=== PATIENT | male | born 1945 | race Caucasian/White ===

== ENCOUNTER 2021-06-03 08:05 | Outpatient (REF) | payer BC, SELFPAY ==
[2021-06-03 11:04] LABS: Hematocrit 45.5 % (42-52); Hemoglobin 15.7 g/dl (14.0-18.0); Mean Corpuscular HGB Conc 34.5 g/dl (31.0-36.0); Mean Corpuscular Volume 92.9 fL (80-98); Mean Platelet Volume 9.6 fL (9.4-12.4); Platelet Count 193 X10*3/uL (160-400); White Blood Count 7.7 X10*3/uL (4.8-10.8)
[2021-06-03 11:47] LABS: Alanine Aminotransferase 29 U/L (0-40); Albumin Level 4.6 g/dL (3.5-5.0); Alkaline Phosphatase 86 U/L (39-117); Anion Gap 16 (12-20); Aspartate Amino Transferase 25 U/L (5-37); Bilirubin Total 0.7 mg/dL (0.0-1.0); Blood Urea Nitrogen 33 mg/dL (9-16); Calcium 9.7 mg/dL (8.4-10.2); Carbon Dioxide 25 mmol/L (22-29); Chloride 105 mmol/L (96-108); Cholesterol 151 mg/dL; Estimated Glomerular Filt Rate 47; Glucose Fasting 103 mg/dL (60-99); HDL Cholesterol 51 mg/dL; LDL Cholesterol Calculated 63 mg/dl; Sodium 142 mmol/L (135-145); Total Protein 7.5 g/dL (6.5-8.0); Triglycerides 189 mg/dL
[2021-06-03 12:10] LABS: Prostate Specific Antigen 0.92 ng/mL (<0.05-4.0)
== END 2021-06-03 08:06 | disposition home or self-care (01) ==
LOC: HO.MANLDS 08:05
PROVIDERS: PCP Internal Medicine; Visit Provider Internal Medicine
DX: Z12.5 Encounter for screening for malignant neoplasm of prostate (principal); I10 Essential (primary) hypertension
CPT/HCPCS: 36415; 80053; 80061; 84153; 85027

== ENCOUNTER 2023-02-24 08:12 | Outpatient (REF) | payer BC, SELFPAY ==
[2023-02-24 11:23] LABS: MANUAL DIFF FLAG NO
[2023-02-24 11:52] LABS: Basophils Absolute Auto 0.1 X10*3/uL (0.0-0.2); Basophils Percent Auto 0.6 % (0-2); Eosinophils Absolute Auto 0.2 X10*3/uL (0.0-0.4); Eosinophils Percent Auto 2.8 % (0-4); Hematocrit 43.7 % (42.0-52.0); Hemoglobin 14.8 g/dl (14.0-18.0); Imm Gran Abs Auto 0.04 X10*3/uL (0.00-0.03); Imm Gran Pct Auto 0.5 % (0.0-0.4); Lymphocytes Absolute Auto 1.8 X10*3/uL (1.2-4.9); Lymphocytes Percent Auto 21.3 % (20-40); Mean Corpuscular HGB Conc 33.9 g/dl (31.0-36.0); Mean Corpuscular Volume 94.4 fL (80.0-98.0); Mean Platelet Volume 9.5 fL (9.4-12.4); Monocytes Absolute Auto 0.7 X10*3/uL (0.1-1.2); Monocytes Percent Auto 8.3 % (2-11); Neutrophils Absolute Auto 5.6 x10*3/uL (2.0-8.3); Neutrophils Percent Auto 66.5 % (45-73); Platelet Count 224 X10*3/uL (160-400); Red Blood Count 4.63 X10*6/uL (4.60-5.80); Red Cell Distribution Width 12.8 % (11.0-16.0); White Blood Count 8.4 X10*3/uL (4.8-10.8)
[2023-02-24 12:10] LABS: Alanine Aminotransferase 21 U/L (0-40); Albumin Level 4.3 g/dL (3.5-5.0); Alkaline Phosphatase 80 U/L (39-117); Anion Gap 16 (12-20); Aspartate Amino Transferase 19 U/L (5-37); Bilirubin Total 0.6 mg/dL (0.0-1.0); Blood Urea Nitrogen 34 mg/dL (9-16); Calcium 9.4 mg/dL (8.4-10.2); Carbon Dioxide 25 mmol/L (22-29); Chloride 107 mmol/L (96-108); Cholesterol 147 mg/dL; Estimated Glomerular Filt Rate 50; Glucose Fasting 101 mg/dL (60-99); HDL Cholesterol 49 mg/dL; LDL Cholesterol Calculated 69 mg/dl; Potassium 4.5 mmol/L (3.3-5.1); Sodium 143 mmol/L (135-145); Triglycerides 146 mg/dL; Uric Acid 9.2 mg/dL (3.4-7.0)
[2023-02-26 12:18] LABS: NT-proBNP 97 pg/mL
== END 2023-02-24 08:13 | disposition home or self-care (01) ==
LOC: HO.MANLDS 08:12
PROVIDERS: Internal Medicine; Visit Provider Physician Assistant
DX: R60.0 Localized edema (principal); E78.2 Mixed hyperlipidemia
CPT/HCPCS: 36415; 80053; 80061; 83880; 84550; 85025

== ENCOUNTER 2023-05-05 | Outpatient (REF) | payer BC, SELFPAY ==
[2023-05-05 18:47] LABS: Uric Acid 7.7 mg/dL (3.4-7.0)
== END 2023-05-05 00:01 ==
LOC: HO.MANLDS
PROVIDERS: Visit Provider Physician Assistant
DX: M10.041 Idiopathic gout, right hand (principal)
CPT/HCPCS: 36415; 84550

== ENCOUNTER 2024-03-21 08:43 | Outpatient (REF) | payer BC, SELFPAY ==
[2024-03-21 13:11] LABS: MANUAL DIFF FLAG NO
[2024-03-21 13:23] LABS: Basophils Absolute Auto 0.1 X10*3/uL (0.0-0.2); Basophils Percent Auto 0.8 % (0-2); Eosinophils Absolute Auto 0.3 X10*3/uL (0.0-0.4); Eosinophils Percent Auto 4.7 % (0-4); Hematocrit 44.7 % (42.0-52.0); Hemoglobin 15.2 g/dl (14.0-18.0); Imm Gran Abs Auto 0.03 X10*3/uL (0.00-0.03); Imm Gran Pct Auto 0.4 % (0.0-0.4); Lymphocytes Absolute Auto 1.1 X10*3/uL (1.2-4.9); Lymphocytes Percent Auto 14.8 % (20-40); Mean Corpuscular Hemoglobin 32.4 pg (27.0-33.0); Mean Corpuscular Volume 95.3 fL (80.0-98.0); Mean Platelet Volume 9.6 fL (9.4-12.4); Monocytes Absolute Auto 0.5 X10*3/uL (0.1-1.2); Monocytes Percent Auto 7.4 % (2-11); Neutrophils Absolute Auto 5.3 x10*3/uL (2.0-8.3); Neutrophils Percent Auto 71.9 % (45-73); Platelet Count 206 X10*3/uL (160-400); Red Blood Count 4.69 X10*6/uL (4.60-5.80); Red Cell Distribution Width 13.9 % (11.0-16.0); White Blood Count 7.3 X10*3/uL (4.8-10.8)
[2024-03-21 14:06] LABS: Alanine Aminotransferase 17 U/L (0-40); Albumin Level 4.4 g/dL (3.5-5.0); Alkaline Phosphatase 86 U/L (39-117); Anion Gap 11 (12-20); Aspartate Amino Transferase 22 U/L (5-37); Bilirubin Total 0.5 mg/dL (0.0-1.0); Blood Urea Nitrogen 28 mg/dL (9-16); Calcium 10.4 mg/dL (8.4-10.2); Carbon Dioxide 29 mmol/L (22-29); Chloride 103 mmol/L (96-108); Cholesterol 170 mg/dL (<200); Estimated Glomerular Filt Rate 47; Glucose Random 100 mg/dL (60-115); HDL Cholesterol 49 mg/dL (>40); LDL Cholesterol Calculated 85 mg/dL (<100); Potassium 5.1 mmol/L (3.3-5.1); Sodium 138 mmol/L (135-145); Total Protein 7.8 g/dL (6.5-8.0); Triglycerides 183 mg/dL (<150); Uric Acid 5.8 mg/dL (3.4-7.0)
[2024-03-21 14:17] LABS: Prostate Specific Antigen 0.97 ng/mL (<0.05-4.0)
== END 2024-03-21 08:44 | disposition home or self-care (01) ==
LOC: HO.MANLDS 08:43
PROVIDERS: Visit Provider Internal Medicine
DX: Z12.5 Encounter for screening for malignant neoplasm of prostate (principal); I10 Essential (primary) hypertension; E78.2 Mixed hyperlipidemia; E79.0 Hyperuricemia without signs of inflammatory arthritis and tophaceous disease
CPT/HCPCS: 36415; 80053; 80061; 84153; 84550; 85025

== ENCOUNTER 2025-08-22 09:16 | Outpatient (REF) | payer BC, SELFPAY ==
--- OUTSIDE RECORDS SUMMARY | 2025-08-22 10:03 | XMS_ITS | Clinical Summary ---
Author Organization [facility] Address [address] [place] [address] Phone Care Team Providers Care Door Repairer Bus Name Role Phone Kojo Armenta Primary Care Provider [phone] KathiKojo DO Unavailable Allergies Active Allergy Reactions Criticality Noted Date Comments Anthony Inhibitors 06/20/2022 Other reaction(s): hyperlakemia Amlodipine 06/20/2022 Other reaction(s): Edema Arb-Angiotensin Receptor Antagonist 06/20/2022 Penicillin Medium 06/20/2022 Other reaction(s): rash Penicillins Rash Low 12/09/2011 Other reaction(s): RASH Sulfa (Sulfonamide Antibiotics) Rash Low 06/20/2022 Terazosin 06/20/2022 Medications sildenafil (VIAGRA) 100 mg tablet 1 tablet as needed 0 Active atorvastatin (LIPITOR) 40 MG tablet 1 tablet 0 Active metoprolol tartrate (LOPRESSOR) 100 MG tablet TAKE ONE TABLET BY MOUTH TWICE DAILY Active valACYclovir (VALTREX) 500 MG tablet Take 250 mg by mouth 3 (three) times a week. Active aspirin 81 MG EC tablet Take 81 mg by mouth daily. Active allopurinol (ZYLOPRIM) 100 MG tablet Take 2 tablets by mouth every morning. 4 Active amLODIPine (NORVASC) 10 MG tablet Take 10 mg by mouth daily. Active chlorthalidone (HYGROTON) 25 MG tablet Take 25 mg by mouth daily. Active therapeutic multivitamin tablet Take 1 tablet by mouth daily. Active Social History Tobacco Use Types Packs/Day Years Used Date Smoking Tobacco: Former Cigarettes Q uit: 1973 Smokeless Tobacco: Never Tobacco Cessation:Counseling Given: Not Answered Alcohol Use Standard Drinks/Week Comments Yes 4 (1 standard drink = 0.6 oz pur e alcohol) Education Answer Date Recorded Are you interested in more education? Not on maggie e 03/20/2023 Are you concerned about learning? Not on file 03/20/2023 No 03/20/2023 No 03/20/2023 Digital Access Answer Date Recorded No 04/15/2023 No 04/15/2023 Reliable internet access at home? Not on file 04/15/2023 Device with a working camera? Not on file Intimate Partner Violence Answer Date R ecorded Are you denied basic needs s uch as food, clothing, or medical care? No 04/01/2024 In the past 12 months have y ou been in a relationship with a person who hurts, threatens, or tries to control you? No 04/01/2024 Are you denied basic needs s uch as food, clothing, or medical care? No 04/01/2024 In the past 12 months have y ou been in a relationship with a person who hurts, threatens, or tries to control you? No 04/01/2024 Sex and Gender Information Value Date Recorded Sex Assigned at Not on file Legal Sex Male 10:09 PM EDT Gender Identity Not on file Sexual Orientation Not on file Last Filed Vital Signs Vital Sign Reading Time Taken Comments Blood Pressure 108/78 04/01/2024 11:30 AM EDT Pulse 78 04/01/2024 11:30 AM EDT Temperature 36 C (96.8 F) 04/01/2024 11:06 AM EDT Respiratory Rate 20 04/01/2024 11:30 AM EDT Oxygen Saturation 95% 04/01/2024 11:30 AM EDT Inhaled Oxygen Concentration - - Weight 86.2 kg (190 lb) 03/31/2024 9:22 AM EDT Height 175.3 cm (5' 9 ) 03/31/2024 9:22 AM EDT Body Mass Index 28.06 03/31/2024 9:22 AM EDT Plan of Treatment Health Maintenance Due Date Last Done Comments DEPRESSION SCREENING 1957 SMOKING Hx and SMOKELESS TOBACCO SCREENING 1958 RSV VACCINE (1 - 1-dose 75+ series) 2020 PNEUMOCOCCAL VACCINES (50+ years) (2 of 2 - PPSV23) 09/27/2022 09/27/2021 INFLUENZA VACCINE (#1) 2025 10/06/2022, 2020 COVID-19 VACCINE (5 - season) 2025 10/06/2022, 08/20/2021, 01/15/2021, Additional history exists CREATININE LEVEL 08/22/2025 08/22/2024 POTASSIUM LEVEL 08/22/2025 08/22/2024 LIPID PANEL 08/22/2029 08/22/2024, 02/22, 02/24/2023, Additional history exists Adult Td,Tdap Booster 09/27/2031 09/27/2021 ZOSTER VACCINES Completed 09/24/2021, 11/2020, 06/25/2020, Additional history exists HEPATITIS A VACCINES Aged Out No long er eligible based on patient's age to complete this topic HIB VACCINES Aged Out No longer eligi ble based on patient's age to complete this topic MENINGOCOCCAL VACCINES (ACWY) Aged Out No longer eligible based on patient's age to complete this topic MENINGOCOCCAL VACCINES (B) Aged Out N o longer eligible based on patient's age to complete this topic Medical Devices Implanted Type Area Yardage Tufting Machine Operator Device Identifier Shelf Expiration Date Model / Serial / Lot Left Leg Cardiac Stents Procedures Procedure Name Priority Date/Time Associated Diagnosis Comments LIPID PANEL Routine 08/22/2024 8:16 AM EDT Encounter for general adult medical examination with abnormal findings COMPREHENSIVE METABOLIC PANEL Routine 08/22/2024 8:16 AM EDT Encounter for general adult medical examination with abnormal findings from Last 3 Months or Most Recently Relevant to Health Maintenance Results * (ABNORMAL) Comprehensive metabolic panel (08/22/2024 8:16 AM EDT) SODIUM 142 133 - 146 mmol/L [facility] POTASSIUM 5.0 3.3 - 5.1 mmol/L [facility] CHLORIDE 104 96 - 108 mmol/L [facility] CO2 27 21 - 35 mmol/L [facility] BUN 33(H) 6 - 19 mg/dL [facility] CREATININE 1.50 0.5 - 1.5 mg/dL [facility] GLUCOSE 94 70 - 99 mg/dL [facility] ALBUMIN 4.2 3.9 - 4.8 g/dL [facility] TOTAL PROTEIN 7.2 6.5 - 8.0 g/dL [facility] CALCIUM 9.6 8.4 - 10.3 mg/dL [facility] ALKALINE PHOSPHATASE 90 39 - 117 U/L [facility] TOTAL BILIRUBIN 0.4 0.0 - 1.2 mg/dL [facility] AST 23 0 - 37 U/L [facility] ALT 16 0 - 40 U/L [facility] GLOBULIN 3.0 1 - 4.8 g/dL [facility] EGFR 47(L) >59 mL/min/1.7 3m2 [facility] Comment:Estimated glomerular filtration rate calculated using the CKD-EPI refit equation. ANION GAP 16 10 - 20 mmol/L [facility] Blood 08/22/2024 8:16 AM EDT 08/22/2024 8:18 AM EDT us Kojo A Bigda DO LAB BLOOD ORDERABLES Final Resul t [facility] [address] [place] [address] * (ABNORMAL) Lipid panel (08/22/2024 8:16 AM EDT) HDL 47 mg/dL [facility] Comment: Interpretation <40 mg/dL: Low HDL cholesterol (major risk factor for CHD) Greater than or equal to 60 mg/dL: High HDL cholesterol ( negative risk factor for CHD) HDL - cholesterol is affected by a number of factors, e.g. smoking, excerise, hormones, sex and age. CHOLESTEROL 150 0 - 240 mg/dL [facility] TRIGLYCERIDES 245(H) 30 - 160 mg/dL [facility] LDL 54 50 - 129 mg/dL [facility] Comment: LDL levels in terms of risk for coronary heart disease: <100 mg/dL: Optimal 100-129 mg/dL: Near or above optimal 130-159 mg/dL: Borderline high 160-189 mg/dL: High >190 mg/dL: Very High CARDIAC RISK RATIO 3.2(L) 3.4 - 5.0 C [facility] Blood 08/22/2024 8:16 AM EDT 08/22/2024 8:19 AM EDT us Kojo Armenta DO LAB BLOOD ORDERABLES Final Resul t [facility] [address] [place] [address] from Last 3 Months or Most Recently Relevant to Health Maintenance Insurance Care Teams Door Repairer Bus Relationship Specialty Start Date End Date Kojo Armenta DO [email or web address] PCP - General 09/07/17 Kojo Armenta DO [address] [place] [address] [email or web address] Insurance Assigned Provider 02/27/24 Additional Source Comments The information contained in this document represents components of the legal health record. It is not the complete legal health record.[facility]
--- OUTSIDE RECORDS SUMMARY | 2025-08-22 10:03 | XMS_ITS | Encounter Summary ---
Author Organization [facility] Address [address] [place] [address] Phone Care Team Providers Care Dumbwaiter Operator Name Role Phone Kojo Aremnta Primary Care Provider [phone] HeraclioKojo lowery Unavailable Encounter Details Date Type Department Care Team (Latest Contact Info) Description 02/23/2023 Transcribe Orders Virtual Department [address] [place] [address] Zainab Vasquez PA [address] [facility] [place] [address] [place] [address] Pain in joint involving ankle and foot, unspecified laterality (Primary Dx) Social History Tobacco Use Types Packs/Day Years Used Date Smoking Tobacco: Never Assessed Sex and Gender Information Value Date Recorded Sex Assigned at Not on file Legal Sex Male 10:09 PM EDT Gender Identity Not on file Sexual Orientation Not on file documented as of this encounter Plan of Treatment Not on file documented as of this encounter Results * XR ANKLE 3 OR MORE VIEWS (RIGHT) (02/24/2023 9:07 AM EDT) Anatomical Region Laterality Modality Ankle Right Computed Radiogr aphy 02/24/2023 6:05 PM EDT Impressions 02/24/2023 6:07 PM EDT Postoperative findings in 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 No acute osseous abnormality in the left ankle, with mild degenerative findings. Left ankle is also similar compared to 2019. Narrative 02/24/2023 6:07 PM EDT XR ANKLE 3 OR MORE VIEWS (LEFT), XR ANKLE 3 OR MORE VIEWS (RIGHT) COMPARISON: XR ANKLE 3 OR MORE VIEWS (LEFT) FINDINGS: Left ankle: No fracture or dislocation. Ankle mortise is congruent. Talar dome appears intact. Mild tibiotalar and midfoot degenerative change. Plantar calcaneal spur. Findings are similar compared to 2019. Right ankle: Multifocal osseous irregularity is similar to prior, consistent was correlated of prior trauma. No acute fracture or dislocation. Moderate tibiotalar joint degenerative change. Mild midfoot degenerative change. Plantar calcaneal spur. Procedure Note Hernán Solorio MD - 02/24/2023 XR ANKLE 3 OR MORE VIEWS (LEFT), XR ANKLE 3 OR MORE VIEWS (RIGHT) COMPARISON: XR ANKLE 3 OR MORE VIEWS (LEFT) FINDINGS: Left ankle: No fracture or dislocation. Ankle mortise is congruent. Talardome appears intact. Mild tibiotalar and midfoot degenerative change.Plantar calcaneal spur. Findings are similar compared to 2019. Right ankle: Multifocal osseous irregularity is similar to prior,consistent was correlated of prior trauma. No acute fracture ordislocation. Moderate tibiotalar joint degenerative change. Mild midfootdegenerative change. Plantar calcaneal spur. IMPRESSION: Postoperative findings in the right ankle with moderate secondarytibiotalar degeneration, similar compared to 2019. No acute osseous abnormality in the left ankle, with mild degenerativefindings. Left ankle is also similar compared to 2019. 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 No acute osseous abnormality in the left ankle, with mild degenerative findings. Left ankle is also similar compared to 2019. Narrative 02/24/2023 6:07 PM EDT XR ANKLE 3 OR MORE VIEWS (LEFT), XR ANKLE 3 OR MORE VIEWS (RIGHT) COMPARISON: XR ANKLE 3 OR MORE VIEWS (LEFT) 2018- FINDINGS: Left ankle: No fracture or dislocation. Ankle mortise is congruent. Talar dome appears intact. Mild tibiotalar and midfoot degenerative change. Plantar calcaneal spur. Findings are similar compared to 2019. Right ankle: Multifocal osseous irregularity is similar to prior, consistent was correlated of prior trauma. No acute fracture or dislocation. Moderate tibiotalar joint degenerative change. Mild midfoot degenerative change. Plantar calcaneal spur. Procedure Note Hernán Solorio MD - 02/24/2023 XR ANKLE 3 OR MORE VIEWS (LEFT), XR ANKLE 3 OR MORE VIEWS (RIGHT) COMPARISON: XR ANKLE 3 OR MORE VIEWS (LEFT) FINDINGS: Left ankle: No fracture or dislocation. Ankle mortise is congruent. Talardome appears intact. Mild tibiotalar and midfoot degenerative change.Plantar calcaneal spur. Findings are similar compared to 2019. Right ankle: Multifocal osseous irregularity is similar to prior,consistent was correlated of prior trauma. No acute fracture ordislocation. Moderate tibiotalar joint degenerative change. Mild midfootdegenerative change. Plantar calcaneal spur. IMPRESSION: Postoperative findings in the right ankle with moderate secondarytibiotalar degeneration, similar compared to 2019. No acute osseous abnormality in the left ankle, with mild degenerativefindings. Left ankle is also similar compared to 2019. Zainab Vasquez PA IMG XR LOWER EXTREMITY Ursula l Result documented in this encounter Visit Diagnoses Diagnosis Pain in joint involving ankle and foot, unspecified laterality- Primary Pain in joint involving ankle and foot, unspecified laterality Pain in joint involving ankle and foot, unspecified laterality documented in this encounter Care Teams Dumbwaiter Operator Relationship Specialty Start Date End Date Kojo Armenta DO [email or web address] PCP - General 09/07/17 Kojo Armenta DO [address] [place] [id number] Insurance Assigned Provider 02/27/24 documented as of this encounter Additional Source Comments The information contained in this document represents components of the legal health record. It is not the complete legal health record.[facility]
--- OUTSIDE RECORDS SUMMARY | 2025-08-22 10:03 | XMS_ITS | Encounter Summary ---
Author Organization [facility] Address [address] [place] [phone] Phone Care Team Providers Care Dedicated Local Truck Driver Name Role Phone Kojo Armenta DO Primary Care Provider [phone] Kojo Armenta DO Unavailable Encounter Details Date Type Department Care Team (Late st Contact Info) Description 12/09/2023 Procedure Pass [facility] Admitting Dept Virtual Department [address] [place] [address] Social History Tobacco Use Types Packs/Day Years Used Date Smoking Tobacco: Never Assessed Education Answer Date Recorded Are you interested in more education? Not on maggie e 03/20/2023 Are you concerned about learning? Not on file 03/20/2023 No 03/20/2023 No 03/20/2023 Digital Access Answer Date Recorded No 04/15/2023 No 04/15/2023 Reliable internet access at home? Not on file 04/15/2023 Device with a working camera? Not on file Sex and Gender Information Value Date Recorded Sex Assigned at Not on file Legal Sex Male 10:09 PM EDT Gender Identity Not on file Sexual Orientation Not on file documented as of this encounter Plan of Treatment Not on file documented as of this encounter Visit Diagnoses Not on filedocumented in this encounter Care Teams Dedicated Local Truck Driver Relationship Specialty Start Date End Date Kojo Armenta DO [email or web address] PCP - General 09/07/17 Kojo Armenta DO [address] [place] [address] [email or web address] Insurance Assigned Provider 02/27/24 documented as of this encounter Additional Source Comments The information contained in this document represents components of the legal health record. It is not the complete legal health record.[facility]
--- OUTSIDE RECORDS SUMMARY | 2025-08-22 10:03 | XMS_ITS | Encounter Summary ---
Author Organization [facility] Address [address] [place] [address] Phone Care Team Providers Care Invasive Manager Name Role Phone HeracliosebastiánKojo DO Primary Care Provider [phone] Kojo Armenta DO Unavailable Encounter Details Date Type Department Care Team (Late st Contact Info) Description 03/21/2022 Procedure Pass [facility], [address] [address] Social History Tobacco Use Types Packs/Day Years [...] on filedocumented in this encounter Care Teams Invasive Manager Relationship Specialty Start Date End Date Kojo Armenta DO PCP - General 09/07/17 Kojo Armenta DO [address] [place] [address] [place] [address] Insurance Assigned Provider 02/27/24 documented as of this encounter Additional Source Comments The information contained in this document represents components of the legal health record. It is not the complete legal health record.[facility]
--- OUTSIDE RECORDS SUMMARY | 2025-08-22 10:03 | XMS_ITS | Encounter Summary ---
Author Organization [facility] Address [address] [place] [id number] Phone Care Team Providers Care Welfare Investigator Name Role Phone Heracliosebastián Kojo Germain DO Primary Care Provider [phone] Kojo Armenta DO Unavailable Encounter Details Date Type Department Care Team (Late st Contact Info) Description 03/21/2022 Transcribe Orders Virtual Department [address] [place] [address] Kojo Armenta DO [address] [facility] [place] [address] [place] [address] [email or web address] Acute medial meniscus tear of right knee, initial encounter (Primary Dx) Social History Tobacco Use Types Packs/Day Years Used Date Smoking Tobacco: Never Assessed Sex and Gender Information Value Date Recorded Sex Assigned at Not on file Legal Sex Male 10:09 PM EDT Gender Identity Not on file Sexual Orientation Not on file documented as of this encounter Plan of Treatment Not on file documented as of this encounter Results * XR KNEE 4 OR MORE VIEWS (RIGHT) (03/24/2022 1:49 PM EDT) Anatomical Region Laterality Modality Knee Right Computed Radiogr aphy 03/24/2022 4:54 PM EDT Impressions 03/24/2022 4:58 PM EDT Moderate medial compartment degenerative changes. Narrative 03/24/2022 4:58 PM EDT XR KNEE 4 OR MORE VIEWS (RIGHT) COMPARISON: None FINDINGS: No fracture. Moderate medial compartment degenerative changes and joint space loss. Mild lateral and patellofemoral compartment degenerative changes. No joint effusion. Vascular calcifications. Procedure Note Dong Knight MD - 03/24/2022 XR KNEE 4 OR MORE VIEWS (RIGHT) COMPARISON: None FINDINGS: No fracture. Moderate medial compartment degenerative changes and jointspace loss. Mild lateral and patellofemoral compartment degenerativechanges. No joint effusion. Vascular calcifications. IMPRESSION: Moderate medial compartment degenerative changes. Kojo Armenta DO IMG XR LOWER EXTREMITY Final Res ult documented in this encounter Visit Diagnoses Diagnosis Acute medial meniscus tear of right knee, initial encounter- Primary Acute medial meniscus tear of right knee, initial encounter documented in this encounter Care Teams Welfare Investigator Relationship Specialty Start Date End Date Kojo Armenta DO PCP - General 09/07/17 Kojo Armenta DO [address] [place] [address] Insurance Assigned Provider 02/27/24 documented as of this encounter Additional Source Comments The information contained in this document represents components of the legal health record. It is not the complete legal health record.[facility]
--- OUTSIDE RECORDS SUMMARY | 2025-08-22 10:03 | XMS_ITS | Encounter Summary ---
Author Organization [facility] Address [address] [place] [address] Phone Care Team Providers Care Fiber Glass Worker Name Role Phone Kojo Armenta DO Primary Care Provider [phone] Kojo Armenta DO Unavailable Reason for Referral * MRI/CAT Scan - Closed Specialty Diagnoses / Procedures Referred By Fareed bobo Referred To Contact Radiology Diagnoses Other tear of medial meniscus, current injury, right knee, subsequent encounter Procedures MRI Knee (Right) CHG MRI LOWER EXTREM JT, W/O CONTRAST Kojo Armenta DO Phone: tel: fax: [email or web address] [address] [place], [place] Phone: tel: Referral ID Status Reason Start Date Expiration Date Visits Re quested Visits Authorized [id number] Closed 04/06/2022 05/06/2022 1 1 Encounter Details Date Type Department Care Team (Late st Contact Info) Description 03/21/2022 Transcribe Orders [facility] Department [address] [place] [address] Kojo Armenta DO [address] [place] [address] [place] [address] Other tear of medial meniscus, current injury, right knee, subsequent encounter (Primary Dx) Social History Tobacco Use Types Packs/Day Years Used Date Smoking Tobacco: Never Assessed Sex and Gender Information Value Date Recorded Sex Assigned at Not on file Legal Sex Male 10:09 PM EDT Gender Identity Not on file Sexual Orientation Not on file documented as of this encounter Plan of Treatment Not on file documented as of this encounter Results * MRI KNEE WITHOUT CONTRAST (RIGHT) (04/06/2022 8:34 AM EDT) Anatomical Region Laterality Modality Knee Right Magnetic Resonan ce 04/07/2022 10:3 8 AM EDT Impressions 04/07/2022 10:53 AM EDT 1.Medial and lateral meniscal tears as above. 2.PCL partial tear and ACL sprain. 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 6.Tiny Gonzales's cyst and 3 mm loose body. Narrative 04/07/2022 10:53 AM EDT COMPARISON: Right knee radiographs 03/24/2022. TECHNIQUE: Exam performed on a 1.5 Tisha high-field MRI scanner. Axial proton density with fat suppression, coronal proton density and proton density with fat suppression, sagittal T1, oblique sagittal proton density and proton density with fat suppression parallel to the plane of the ACL sequences were obtained. MRI RIGHT KNEE FINDINGS: Patella: There is a small area of subchondral marrow edema, cartilage thinning and hyperintense cartilage signal in the central patella. No patella malalignment. Menisci: Anterior horn lateral meniscus linear hyperintense signal contiguous with the articular surface. No discoid meniscus. The medial meniscus is predominantly extruded from the joint space with diffuse hyperintense signal most significant involving the body and posterior horn. There is multifocal hyperintense signal and attenuation of the posterior horn free edge. No bucket-handle tear. Cruciate ligaments: Diffuse ACL hyperintense signal without ligament disruption or thickening. PCL intrasubstance linear hyperintense signal and mild distal ligament thickening. Collateral ligaments: MCL and LCL are intact. Extensor mechanism: Distal quadriceps and proximal and distal patellar tendon intermediate signal intensity indicative of tendinopathy. No tear. Bone marrow/joint: Moderate medial knee compartment joint space narrowing with cartilage loss and mild subchondral marrow edema. No malalignment. No destructive or suspicious bone lesions. Small joint effusion. Tiny Gonzales's cyst containing a 3 mm loose body. Mild anterior knee soft tissue edema without fluid collection. Procedure Note Jin David MD - 04/07/2022 COMPARISON: Right knee radiographs 03/24/2022. TECHNIQUE: Exam performed on a 1.5 Tisha high-field MRI scanner. Axialproton density with fat suppression, coronal proton density and protondensity with fat suppression, sagittal T1, oblique sagittal proton densityand proton density with fat suppression parallel to the plane of the ACLsequences were obtained. MRI RIGHT KNEE FINDINGS: Patella: There is a small area of subchondral marrow edema, cartilagethinning and hyperintense cartilage signal in the central patella. Nopatella malalignment. Menisci: Anterior horn lateral meniscus linear hyperintense signalcontiguous with the articular surface. No discoid meniscus. The medialmeniscus is predominantly extruded from the joint space with diffusehyperintense signal most significant involving the body and posteriorhorn. There is multifocal hyperintense signal and attenuation of theposterior horn free edge. No bucket-handle tear. Cruciate ligaments: Diffuse ACL hyperintense signal without ligamentdisruption or thickening. PCL intrasubstance linear hyperintense signaland mild distal ligament thickening. Collateral ligaments: MCL and LCL are intact. Extensor mechanism: Distal quadriceps and proximal and distal patellartendon intermediate signal intensity indicative of tendinopathy. Notear. Bone marrow/joint: Moderate medial knee compartment joint space narrowingwith cartilage loss and mild subchondral marrow edema. No malalignment. Nodestructive or suspicious bone lesions. Small joint effusion. Tiny Gonzales'scyst containing a 3 mm loose body. Mild anterior knee soft tissue edemawithout fluid collection. IMPRESSION: 1.Medial and lateral meniscal tears as above. 2.PCL partial tear and ACL sprain. 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 6.Tiny Gonzales's cyst and 3 mm loose body. us Kojo A Bigda IMG MR EXTREMITY Final Result documented in this encounter Visit Diagnoses Diagnosis Other tear of medial meniscus, current injury, right knee, subsequent encounter- Primary Other tear of medial meniscus, current injury, right knee, subsequent encounter documented in this encounter Care Teams Fiber Glass Worker Relationship Specialty Start Date End Date [email or web address] PCP - General 09/07/17 Kojo Armenta DO [address] [place] [address] Insurance Assigned Provider 02/27/24 documented as of this encounter Additional Source Comments The information contained in this document represents components of the legal health record. It is not the complete legal health record.[facility]
--- OUTSIDE RECORDS SUMMARY | 2025-08-22 10:03 | XMS_ITS | Encounter Summary ---
Author Organization [facility] Address [address] [place] [address] Phone Care Team Providers Care Manufacturing Engineering Intern Name Role Phone Heracliosebastián Kojo Germain DO Primary Care Provider [phone] Kojo Armenta DO Unavailable Encounter Details Date Type Department Care Team (Late st Contact Info) Description 09/28/2018 Procedure Pass [facility] Endoscopy Admitting Dept Virtual Department [address] [place] [address] Social History Tobacco Use Types Packs/Day Years [...] on filedocumented in this encounter Care Teams Manufacturing Engineering Intern Relationship Specialty Start Date End Date Kojo Armenta DO [email or web address] PCP - General 09/07/17 Kojo Armenta DO [address] [place] [address] [place] [address] [email or web address] Insurance Assigned Provider 02/27/24 documented as of this encounter Additional Source Comments The information contained in this document represents components of the legal health record. It is not the complete legal health record.[facility]
--- OUTSIDE RECORDS SUMMARY | 2025-08-22 10:03 | XMS_ITS | Encounter Summary ---
Author Organization [facility] Address [address] [place] [address] Phone Care Team Providers Care Rubber Goods Tester Water Name Role Phone HeracliosebastiánKojo DO Primary Care Provider [phone] Kojo Armenta DO Unavailable Encounter Details Date Type Department Care Team (Late st Contact Info) Description 12/29/2018 Ancillary Orders Virtual Department [address] [place] [address] Kojo Armenta DO [address] [facility] [address] [place] [address] [email or web address] Screening for AAA (aortic abdominal aneurysm); Pain of foot, unspecified laterality Social History Tobacco Use Types Packs/Day Years Used Date Smoking Tobacco: Never Assessed Sex and Gender Information Value Date Recorded Sex Assigned at Not on file Legal Sex Male 10:09 PM EDT Gender Identity Not on file Sexual Orientation Not on file documented as of this encounter Plan of Treatment Not on file documented as of this encounter Results * US Abdominal Aortic Screening (01/12/2019 9:23 AM EST) Anatomical Region Laterality Modality Abdomen Ultrasound 01/12/2019 10:3 9 AM EST Impressions 01/12/2019 10:40 AM EST Unremarkable aortic ultrasound. No AAA nor overt atherosclerotic changes. POS [id number] Narrative 01/12/2019 10:40 AM EST Compare to CT 10/16/2014 No aortic dilatation is apparent at any level. Proximal 2.4 x 2.6 cm. Mid 2.2 x 2.1 cm. Distal 2.0 x 2.1 cm. Right common iliac 1.0 x 1.1 cm. Left common iliac 1.2 x 1.3 cm. No significant atherosclerotic plaque. Procedure Note Santiago Ahmadi MD - 01/12/[address] 10/16/2014 No aortic dilatation is apparent at any level. Proximal 2.4 x 2.6 cm. Mid 2.2 x 2.1 cm. Distal 2.0 x 2.1 cm. Right common iliac 1.0 x 1.1 cm. Left common iliac 1.2 x 1.3 cm. No significant atherosclerotic plaque. IMPRESSION: Unremarkable aortic ultrasound. No AAA nor overt atheroscleroticchanges. POS [id number] us Kojo A Bigda DO IMG US ABDOMEN Final Result * XR FOOT 3 OR MORE VIEWS (LEFT) (12/30/2018 9:52 AM EST) Anatomical Region Laterality Modality Foot Left Radiographic Cheryl ging 12/30/2018 11:5 1 AM EST Impressions 12/30/2018 11:58 AM EST Minimal degenerative changes in each foot. No clear explanation for pain. POS - [id number] Narrative 12/30/2018 11:58 AM EST HISTORY: Bilateral pain, worse on right than left. COMPARISON: None. VIEWS: Three views of each foot. FINDINGS: Right: Minimal degenerative spurring in the foot. No evidence of erosions. No fractures, subluxations or dislocations. No suspicious lytic or blastic lesions within the bones. No suspicious soft tissue calcifications. Left: Minimal degenerative spurring in the foot. No evidence of erosions. No fractures, subluxations or dislocations. No suspicious lytic or blastic lesions within the bones. No suspicious soft tissue calcifications. Procedure Note Kali Andrade MD - 12/30/2018 HISTORY: Bilateral pain, worse on right than left. COMPARISON: None. VIEWS: Three views of each foot. FINDINGS: Right: Minimal degenerative spurring in the foot. No evidence oferosions. No fractures, subluxations or dislocations. No suspiciouslytic or blastic lesions within the bones. No suspicious soft tissuecalcifications. Left: Minimal degenerative spurring in the foot. No evidence of erosions.No fractures, subluxations or dislocations. No suspicious lytic orblastic lesions within the bones. No suspicious soft tissuecalcifications. IMPRESSION: Minimal degenerative changes in each foot. No clear explanation forpain. POS - [email or web address] us Kojo A Bigda DO IMG XR LOWER EXTREMITY Final Res ult * XR FOOT 3 OR MORE VIEWS (RIGHT) (12/30/2018 9:52 AM EST) Anatomical Region Laterality Modality Foot Right Radiographic Cheryl ging 12/30/2018 11:5 1 AM EST Impressions 12/30/2018 11:58 AM EST Minimal degenerative changes in each foot. No clear explanation for pain. POS - [email or web address] Narrative 12/30/2018 11:58 AM EST HISTORY: Bilateral pain, worse on right than left. COMPARISON: None. VIEWS: Three views of each foot. FINDINGS: Right: Minimal degenerative spurring in the foot. No evidence of erosions. No fractures, subluxations or dislocations. No suspicious lytic or blastic lesions within the bones. No suspicious soft tissue calcifications. Left: Minimal degenerative spurring in the foot. No evidence of erosions. No fractures, subluxations or dislocations. No suspicious lytic or blastic lesions within the bones. No suspicious soft tissue calcifications. Procedure Note Kali Andrade MD - 12/30/2018 HISTORY: Bilateral pain, worse on right than left. COMPARISON: None. VIEWS: Three views of each foot. FINDINGS: Right: Minimal degenerative spurring in the foot. No evidence oferosions. No fractures, subluxations or dislocations. No suspiciouslytic or blastic lesions within the bones. No suspicious soft tissuecalcifications. Left: Minimal degenerative spurring in the foot. No evidence of erosions.No fractures, subluxations or dislocations. No suspicious lytic orblastic lesions within the bones. No suspicious soft tissuecalcifications. IMPRESSION: Minimal degenerative changes in each foot. No clear explanation forpain. POS - [email or web address] us Kojo A Heraclioda DO IMG XR LOWER EXTREMITY Final Res ult * XR ANKLE 3 OR MORE VIEWS (RIGHT) (12/30/2018 9:51 AM EST) Anatomical Region Laterality Modality Ankle Right Radiographic Cheryl ging 12/30/2018 11:3 3 AM EST Impressions 12/30/2018 11:51 AM EST Mild-moderate general changes at right ankle and mild degenerative changes at left ankle. Moderate sized plantar calcaneal spur on right and smaller plantar calcaneal spur on left. POS - [email or web address] Narrative 12/30/2018 11:51 AM EST HISTORY: Bilateral ankle pain, more severe on right than left. No known trauma. COMPARISON: None. VIEWS: Three views of each ankle. FINDINGS: Right: Mild-moderate marginal spurring at the tibiotalar and talofibular joints. No evidence of erosions. No fractures, subluxations or dislocations. No suspicious lytic or blastic lesions within the bones. Moderate sized plantar calcaneal spur. Left: Mild spurring at the tibiotalar joint. No fractures, subluxations or dislocations. No suspicious lytic or blastic lesions within the bones. Small plantar calcaneal spur. Procedure Note Kali Andrade MD - 12/30/2018 HISTORY: Bilateral ankle pain, more severe on right than left. No knowntrauma. COMPARISON: None. VIEWS: Three views of each ankle. FINDINGS: Right: Mild-moderate marginal spurring at the tibiotalar and talofibularjoints. No evidence of erosions. No fractures, subluxations ordislocations. No suspicious lytic or blastic lesions within the bones.Moderate sized plantar calcaneal spur. Left: Mild spurring at the tibiotalar joint. No fractures, subluxationsor dislocations. No suspicious lytic or blastic lesions within the bones.Small plantar calcaneal spur. IMPRESSION: Mild-moderate general changes at right ankle and mild degenerative changesat left ankle. Moderate sized plantar calcaneal spur on right and smallerplantar calcaneal spur on left. POS - [email or web address] us Kojo Marcellus Armenta DO IMG XR LOWER EXTREMITY Final Res ult * XR ANKLE 3 OR MORE VIEWS (LEFT) (12/30/2018 9:50 AM EST) Anatomical Region Laterality Modality Ankle Left Radiographic Cheryl ging 12/30/2018 11:3 3 AM EST Impressions 12/30/2018 11:51 AM EST Mild-moderate general changes at right ankle and mild degenerative changes at left ankle. Moderate sized plantar calcaneal spur on right and smaller plantar calcaneal spur on left. POS - [email or web address] Narrative 12/30/2018 11:51 AM EST HISTORY: Bilateral ankle pain, more severe on right than left. No known trauma. COMPARISON: None. VIEWS: Three views of each ankle. FINDINGS: Right: Mild-moderate marginal spurring at the tibiotalar and talofibular joints. No evidence of erosions. No fractures, subluxations or dislocations. No suspicious lytic or blastic lesions within the bones. Moderate sized plantar calcaneal spur. Left: Mild spurring at the tibiotalar joint. No fractures, subluxations or dislocations. No suspicious lytic or blastic lesions within the bones. Small plantar calcaneal spur. Procedure Note Kali Andrade MD - 12/30/2018 HISTORY: Bilateral ankle pain, more severe on right than left. No knowntrauma. COMPARISON: None. VIEWS: Three views of each ankle. FINDINGS: Right: Mild-moderate marginal spurring at the tibiotalar and talofibularjoints. No evidence of erosions. No fractures, subluxations ordislocations. No suspicious lytic or blastic lesions within the bones.Moderate sized plantar calcaneal spur. Left: Mild spurring at the tibiotalar joint. No fractures, subluxationsor dislocations. No suspicious lytic or blastic lesions within the bones.Small plantar calcaneal spur. IMPRESSION: Mild-moderate general changes at right ankle and mild degenerative changesat left ankle. Moderate sized plantar calcaneal spur on right and smallerplantar calcaneal spur on left. POS - [email or web address] Kojo Armenta DO IMG XR LOWER EXTREMITY Final Res ult documented in this encounter Visit Diagnoses Diagnosis Screening for AAA (aortic abdominal aneurysm) Screening for other and unspecified cardiovascular conditions Pain of foot, unspecified laterality Pain of foot, unspecified laterality Pain of foot, unspecified laterality Pain of foot, unspecified laterality Pain of foot, unspecified laterality Screening for AAA (aortic abdominal aneurysm) Screening for other and unspecified cardiovascular conditions documented in this encounter Care Teams Rubber Goods Tester Water Relationship Specialty Start Date End Date Kojo Armenta DO PCP - General 09/07/17 Kojo Armenta DO [address] [place] [address] Insurance Assigned Provider 02/27/24 documented as of this encounter Additional Source Comments The information contained in this document represents components of the legal health record. It is not the complete legal health record.[facility]
--- OUTSIDE RECORDS SUMMARY | 2025-08-22 10:03 | XMS_ITS | Encounter Summary ---
Author Organization [facility] Address [address] [place] [address] [place] [address] Phone Care Team Providers Care Web Methods Developer Name Role Phone Kojo Armenta Primary Care Provider [phone] HeraclioKojo lowery DO Unavailable Encounter Details Date Type Department Care Team (Late st Contact Info) Description 04/01/2024 Procedure Pass [facility]oscopy Admitting Dept Virtual Department [address] [place] [address] Social History Tobacco Use Types Packs/Day Years Used Date Smoking Tobacco: Former Cigarettes Q uit: 1973 Smokeless Tobacco: Never Alcohol Use Standard Drinks/Week Comments Yes 4 [...] on filedocumented in this encounter Care Teams Web Methods Developer Relationship Specialty Start Date End Date Kojo Armenta DO PCP - General 09/07/17 Kojo Armenta DO [address] [place] [address] [email or web address] Insurance Assigned Provider 02/27/24 documented as of this encounter Additional Source Comments The information contained in this document represents components of the legal health record. It is not the complete legal health record.[facility]
--- OUTSIDE RECORDS SUMMARY | 2025-08-22 10:03 | XMS_ITS | Encounter Summary ---
Author Organization [facility] Address [address] [place] [address] Phone Care Team Providers Care Blueprint Reproducer Name Role Phone Kojo Armenta DO Primary Care Provider [phone] Kojo Armenta DO Unavailable Encounter Details Date Type Department Care Team (Late st Contact Info) Description 12/21/2017 Ancillary Orders [facility] [address] [place] [address] Kojo Armenta DO [address] [facility] [address] [email or web address] Tendonitis Social History Tobacco Use Types Packs/Day Years Used Date Smoking Tobacco: Never Assessed Sex and Gender Information Value Date Recorded Sex Assigned at Not on file Legal Sex Male 10:09 PM EDT Gender Identity Not on file Sexual Orientation Not on file documented as of this encounter Plan of Treatment Not on file documented as of this encounter Results * XR SHOULDER 2 VIEWS (LEFT) (12/21/2017 7:34 AM EST) Anatomical Region Laterality Modality Shoulder Left Radiographic Cheryl ging 12/21/2017 8:02 AM EST Impressions 12/21/2017 8:06 AM EST Mild degenerative changes. POS - [email or web address] Narrative 12/21/2017 8:06 AM EST HISTORY: As above COMPARISON: None FINDINGS: 3 views of the left shoulder performed. No evidence of an acute fracture or dislocation. Mild joint space narrowing and spurring at the acromioclavicular and glenohumeral joints from degenerative change. No destructive bone lesion. No soft tissue calcifications to be suggestive of calcific tendinopathy. Procedure Note Francheska Bradshaw MD - 12/21/2017 HISTORY: As above COMPARISON: None FINDINGS: 3 views of the left shoulder performed. No evidence of an acute fractureor dislocation. Mild joint space narrowing and spurring at theacromioclavicular and glenohumeral joints from degenerative change. Nodestructive bone lesion. No soft tissue calcifications to be suggestiveof calcific tendinopathy. IMPRESSION: Mild degenerative changes. POS - [email or web address] Kojo Armenta DO IMG XR UPPER EXTREMITY Final Res ult documented in this encounter Visit Diagnoses Diagnosis Tendonitis Enthesopathy of unspecified site Tendonitis Enthesopathy of unspecified site documented in this encounter Care Teams Blueprint Reproducer Relationship Specialty Start Date End Date Kojo Armenta DO PCP - General 09/07/17 Kojo Armenta DO [address] [place] [phone] Insurance Assigned Provider 02/27/24 documented as of this encounter Additional Source Comments The information contained in this document represents components of the legal health record. It is not the complete legal health record.[facility]
[2025-08-22 13:38] LABS: MANUAL DIFF FLAG NO
[2025-08-22 13:44] LABS: Hematocrit 41.4 % (42.0-52.0); Hemoglobin 14.5 g/dl (14.0-18.0); Imm Gran Abs Auto 0.05 X10*3/uL (0.00-0.03); Imm Gran Pct Auto 0.6 % (0.0-0.4); Lymphocytes Absolute Auto 1.3 X10*3/uL (1.2-4.9); Mean Corpuscular HGB Conc 35.0 g/dl (31.0-36.0); Mean Corpuscular Hemoglobin 32.4 pg (27.0-33.0); Mean Corpuscular Volume 92.4 fL (80.0-98.0); NRBC Abs Auto 0.000 X10*3/uL (0.0-0.012); NRBC Pct Auto 0.0 /100WBC (0.0-0.2); Platelet Count 203 X10*3/uL (160-400); Red Blood Count 4.48 X10*6/uL (4.60-5.80); White Blood Count 8.5 X10*3/uL (4.8-10.8)
[2025-08-22 14:11] LABS: Alanine Aminotransferase 18 U/L (0-40); Albumin Level 4.5 g/dL (3.5-5.0); Alkaline Phosphatase 97 U/L (39-117); Anion Gap 13 (12-20); Aspartate Amino Transferase 29 U/L (5-37); Blood Urea Nitrogen 33 mg/dL (9-16); Calcium 9.6 mg/dL (8.4-10.2); Carbon Dioxide 27 mmol/L (22-29); Chloride 107 mmol/L (96-108); Cholesterol 161 mg/dL (<200); Estimated Glomerular Filt Rate 42; HDL Cholesterol 45 mg/dL (>40); Potassium 4.9 mmol/L (3.3-5.1); Sodium 142 mmol/L (135-145); Total Protein 7.5 g/dL (6.5-8.0); Triglycerides 177 mg/dL (<150)
[2025-08-22 14:24] LABS: Prostate Specific Antigen 0.95 ng/mL (<0.05-4.0)
== END 2025-08-22 09:17 | disposition home or self-care (01) ==
LOC: HO.MANLDS 09:16
PROVIDERS: Visit Provider Internal Medicine
DX: Z13.89 Encounter for screening for other disorder (principal)
CPT/HCPCS: 36415; 80053; 80061; 84153; 85025

== ENCOUNTER 2025-11-07 08:30 | Outpatient (REF) | payer BC, SELFPAY ==
--- OUTSIDE RECORDS SUMMARY | 2025-11-02 08:54 | XMS_ITS | Encounter Summary ---
Author Organization [facility] Address [address] [place] [id number] Phone Care Team Providers Care Vocal Teacher Name Role Phone Kojo Armenta DO Unavailable HeraclioKojo lowery Primary Care Provider [phone] Reason for Visit * Reason Comments Hematuria Encounter Details Date Type Department Care Team ([facility] st Contact Info) Description 11/02/2025 8:54 AM EST - 11/02/2025 1:00 PM EST Emergency [facility] [address] [place] [address] Discharge Disposition: Home or Self Care Social History Tobacco Use Types Packs/Day Years [...] as food, clothing, or medical care? No 11/02/2025 In the past 12 months have y ou been in a relationship with a person who hurts, threatens, or tries to control you? No 11/02/2025 Are you denied basic needs s uch as food, clothing, or medical care? No 11/02/2025 In the past 12 months have y ou been in a relationship with a person who hurts, threatens, or tries to control you? No 11/02/2025 Sex and Gender Information Value Date Recorded Sex Assigned at Not on file Legal Sex Male 10:09 PM EDT Gender Identity Not on file Sexual Orientation Not on file documented as of this encounter Last Filed Vital Signs Vital Sign Reading Time Taken Comments Blood Pressure 120/82 11/02/2025 12:59 PM EST Pulse 79 11/02/2025 12:59 PM EST Temperature 35.8 C (96.4 F) 11/02/2025 12:59 PM EST Respiratory Rate 16 11/02/2025 12:59 PM EST Oxygen Saturation 94% 11/02/2025 12:59 PM EST Inhaled Oxygen Concentration - - Weight 79.4 kg (175 lb) 11/02/2025 8:31 AM EST Height 175.3 cm (5' 9 ) 11/02/2025 8:31 AM EST Body Mass Index 25.84 11/02/2025 8:31 AM EST documented in this encounter Functional Status * Calculated C-SSRS Risk Score (Lifetime/Recent) Answer Date of Assessment Author No Risk Indicated 11/02/2025 8:31 AM EST Geraldo Padgett RN * Winder Suicide Severity Rating Scale (Screener/Recent Self-Report) Question Answer Date of Assessment Author 1. Wish to be (Past 1 Month) No 025 8:31 AM EST Geraldo Padgett RN 2. Non-Specific Active Suici oly Thoughts (Past 1 Month) No 11/02/2025 8:31 AM EST Geraldo Padgett RN 6. Suicidal Behavior (Lifetime) No 8:31 AM EST Geraldo Padgett RN documented as of this encounter Discharge Instructions * Discharge Instructions* Lucero Iverson PA-C - 11/02/2025 12:47 PM EST No signs of urinary tract infection. Culture is pending and you will be called with any positive bacterial growth. You had slightly elevated creatinine level/kidney function but no signs of kidney swelling or kidney stone on CT imaging. It is recommended that you increase fluids and hydrate over the next few days. You may have off-and-on blood in your urine, and at this time the cause is unknown. It is very importantly follow-up with your primary care doctor and eventually urology for further evaluation to determine cause of bloody urine. As discussed, you are found to have a left kidney cyst/lesion that should be reevaluated with an ultrasound in 1 to 3 months. You may talk to your primary care doctor or urology about obtaining this test. Return to the ER if you have significant worsening of your symptoms or have other acute medical concerns in the future. It was a pleasure caring for today, I hope you feel better! * Attachments The following attachments cannot be sent through Care Everywhere. * Hematuria (Botswanan) documented in this encounter Medications at Time of Discharge allopurinol (ZYLOPRIM) 100 MG tablet Take 2 tablets by mouth every morning. 02/27/2024 amLODIPine (NORVASC) 10 MG tablet Take 10 mg by mouth daily. aspirin 81 MG EC tablet Take 81 mg by mouth daily. atorvastatin (LIPITOR) 40 MG tablet Take 40 mg by mouth daily. 11/08/2010 chlorthalidone (HYGROTON) 25 MG tablet Take 25 mg by mouth daily. metoprolol tartrate (LOPRESSOR) 100 MG tablet TAKE ONE TABLET BY MOUTH TWICE DAILY tamsulosin (FLOMAX) 0.4 mg Cap Take 0.4 mg by mouth daily. therapeutic multivitamin tablet Take 1 tablet by mouth daily. valACYclovir (VALTREX) 500 MG tablet Take 250 mg by mouth 3 (three) times a week. sildenafil (VIAGRA) 100 mg tablet 1 tablet as needed 10/08/2010 documented as of this encounter ED Notes * Yoli Peñaloza, SHAVONNE - 11/02/2025 12:59 PM EST ED Discharge Nursing Note VSS at time of discharge. AVS reviewed, no questions at this time. Patient verbalized understandingof follow up care, medication management, and criteria to return to ED. Patient ambulated out of EDindependently with even, steady gait. * Lucero Byrd RN - 11/02/2025 10:37 AM EST states no bladder scan needed at this time. * Geraldo Padgett RN - 11/02/2025 8:30 AM EST Red blood in urine this am after waking, denies any discomfort or change in frequency. * Lucero Iverson PA-C - 11/02/2025 8:13 AM EST Chief Complaint Chief Complaint Patient presents with Hematuria History of Present Illness The patient, Osmany Andrade,is a 80 y.o. male who presents for evaluation of Hematuria The patient is an 80-year-old male with past medical history of hypertension, hyperlipidemia, CAD, BPH who presents to the ER for evaluation of hematuria. Patient reports onset of hematuria this morning around 6 AM. He denies any other acute symptoms including fever, back pain, nausea or vomiting, abdominal pain, urgency, dysuria or retention. States he otherwise feels normal. He reports nocturia which is baseline. States his doctor started him on tamsulosin about a month and a half ago for nocturia which has reduced his nighttime wakings. No history of similar symptoms or kidney stones. Quit smoking in his 20s. Unless otherwise specified, I have reviewed and agree with the triage and nursing notes. ROS A ten point review of systems was negative except what was noted in the HPI. Review of Systems Past Medical History Past Medical History: Diagnosis Date Arthritis knees and ankles BPH (benign prostatic hyperplasia) Coronary artery disease 2005 stent X2 - [facility] by [facility] Gastroesophageal reflux disease Hyperlipidemia Hypertensive disorder Malignant neoplasm removed from back - melanoma Melanoma back Wears hearing aid Wears partial dentures top front Past Surgical History Past Surgical History: Procedure Laterality Date COLONOSCOPY COLONOSCOPY N/A 04/01/2024 Performed by Kali Meraz MD at [facility] ENDOSCOPY COLONOSCOPY N/A 09/28/2018 Performed by Kali Meraz MD at [facility] ENDOSCOPY CORONARY STENT PLACEMENT FEMUR FRACTURE SURGERY Left HERNIA REPAIR Right SKIN CANCER EXCISION UNCODED SURGICAL HISTORY left femor ORIF UNCODED SURGICAL HISTORY hernia rep UNCODED SURGICAL HISTORY cardiac stents salvador Home Medications Prior to Admission medications Medication Sig allopurinol (ZYLOPRIM) 100 MG tablet 2 tablets, Every morning amLODIPine (NORVASC) 10 MG tablet 10 mg, Daily aspirin 81 MG EC tablet 81 mg, Daily atorvastatin (LIPITOR) 40 MG tablet 40 mg, Daily chlorthalidone (HYGROTON) 25 MG tablet 25 mg, Daily metoprolol tartrate (LOPRESSOR) 100 MG tablet TAKE ONE TABLET BY MOUTH TWICE DAILY tamsulosin (FLOMAX) 0.4 mg Cap 0.4 mg, Daily therapeutic multivitamin tablet 1 tablet, Daily valACYclovir (VALTREX) 500 MG tablet 250 mg, 3 times weekly sildenafil (VIAGRA) 100 mg tablet 1 tablet as needed Patient not taking: Reported on 04/01/2024 Allergies Allergies Allergen Reactions Penicillin Other reaction(s): rash Anthony Inhibitors Other reaction(s): hyperlakemia Amlodipine Other reaction(s): Edema Arb-Angiotensin Receptor Antagonist Terazosin Penicillins Rash Other reaction(s): RASH Sulfa (Sulfonamide Antibiotics) Rash Social and Family History Social History Tobacco Use Smoking status: Former Current packs/day: 0.00 Types: Cigarettes Quit date: 1973 Years since quittin.9 Smokeless tobacco: Never Substance Use Topics Alcohol use: Yes Alcohol/week: 4.0 standard drinks of alcohol Types: 4 Cans of beer per week Social History Substance and Sexual Activity Drug Use Never No family history on file. Physical Exam Vital Signs: ED Triage Vitals [11/02/25 0831] Encounter Vitals Group BP (!) 153/90 Girls Systolic BP Percentile Girls Diastolic BP Percentile Boys Systolic BP Percentile Boys Diastolic BP Percentile Heart Rate 77 Respiratory Rate 18 Temperature 35.6 ??C (96 ??F) Temp Source Tympanic SpO2 96 % Weight 175 lb Height 5' 9 Head Circumference Peak Flow Pain Score Pain Loc Pain Education Exclude from Growth Chart Physical Exam Vitals and nursing note reviewed. Exam conducted with a car pincher present (Yoli Peñaloza RN). Constitutional: General: He is not in acute distress. Appearance: Normal appearance. He is not ill-appearing. HENT: Head: Atraumatic. Nose: Nose normal. Mouth/Throat: Mouth: Mucous membranes are moist. Eyes: Conjunctiva/sclera: Conjunctivae normal. Cardiovascular: Rate and Rhythm: Normal rate and regular rhythm. Heart sounds: Normal heart sounds. No murmur heard. Pulmonary: Effort: Pulmonary effort is normal. No respiratory distress. Breath sounds: Normal breath sounds. No wheezing, rhonchi or rales. Chest: Chest wall: No tenderness. Abdominal: General: There is no distension. Palpations: Abdomen is soft. Tenderness: There is no abdominal tenderness. There is no right CVA tenderness, left CVA tenderness, guarding or rebound. Negative signs include Waddell's sign and McBurney's sign. Genitourinary: Penis: Normal. Testes: Normal. Comments: Presence of blood around meatus without active bleeding Musculoskeletal: Cervical back: Neck supple. Skin: General: Skin is warm and dry. Neurological: General: No focal deficit present. Mental Status: He is alert and oriented to person, place, and time. Psychiatric: Mood and Affect: Mood normal. Behavior: Behavior normal. Laboratory Testing Results for orders placed or performed during the hospital encounter of 11/02/25 URINE SEDIMENT Specimen: Urine, Voided Result Value Ref Range WBC 3-5 0 - 9 /hpf RBC >100 (*) 0 - 2 /hpf CBC and Differential Specimen: Blood Result Value Ref Range WBC 7.28 4.00 - 11.00 K/uL RBC 4.43 (L) 4.50 - 5.90 M/uL Hemoglobin 14.5 13.5 - 17.5 g/dL Hematocrit 41.8 41.0 - 53.0 % MCV 94.4 80.0 - 100.0 fL MCH 32.7 (H) 27.0 - 31.0 pg MCHC 34.7 32.0 - 36.0 g/dL MPV 9.0 8.4 - 12.0 fL RDW-CV 13.6 11.5 - 14.5 % PLT 163 150 - 450 K/uL Neutrophils 71.8 % Lymphocytes 15.9 % Monocytes 8.4 % Eosinophils 3.0 % Basophils 0.5 % Imm Grans 0.4 % NRBC 0.0 <=0.0 /100 WBCs Absolute Neutrophils 5.22 1.92 - 7.60 K/uL Absolute Lymphocytes 1.16 0.72 - 4.10 K/uL Absolute Monocytes 0.61 0.16 - 1.10 K/uL Absolute Eosinophils 0.22 0.00 - 0.50 K/uL Absolute Basophils 0.04 0.00 - 0.15 K/uL Absolute Imm Grans 0.03 0.00 - 0.09 K/uL Absolute NRBC 0.00 <=0.00 K cells/uL Absolute Neutrophils 5.22 1.92 - 7.60 K/uL Diff Type Auto Urinalysis with Reflex to Urine Culture Specimen: Urine, Voided Result Value Ref Range Color Red (*) Yellow Clarity Cloudy (*) Clear Glucose Negative Negative Bilirubin Urine Negative Negative Ketone Urine Negative Negative Specific [place] 1.020 1.001 - 1.035 Blood 3+ (*) Negative pH 6.0 5.0 - 8.0 Protein 2+ (*) Negative Nitrites Negative Negative Leukocyte Esterase Negative Negative Urobilinogen Negative Negative Radiology Testing No orders to display MDM Assessment and Plan: Patient presents for painless hematuria. Arrives with reassuring vitals. Afebrile, nontachycardic. Initially hypertensive with resolution in the ED without intervention. He appears well in no acute distress. Benign exam as noted above. Urinalysis shows blood but no evidence of infection. Labs show normal H&H and white blood cell count. He has a slightly elevated creatinine from his prior year ago without KAREN. Given this a CT was obtained to rule out renal stone/obstruction. CT did not show any acute findings though did reveal a left renal cyst/lesion. Patient had resolution of hematuria while in the ED with clear yellow urine subsequently. No acute need for hospitalization or intervention at this time. Advised to follow-up closely outpatient with PCP/urology for further evaluation and renal ultrasound is recommended by radiology for renal cyst. Advised to increase fluid intake/hydration. Discussed return to ER precautions. Patient agreeable this plan and discharged in stable condition. Case discussed with my attending physician, Dr. Magallanes, who agreed with above assessment, workup and plan Category 2 and 3: Independent Interpretation of Tests, Consideration of Tests, or External Discussion of Results: Labs: Laboratory studies were interpreted. Radiology: Radiology result was discussed with external provider. Radiology for renal cyst . Clinical Impressions as of 11/02/25 1251 Painless hematuria Elevated serum creatinine Renal cyst Critical Care Time: 0 minutes Clinical Impression None Disposition: Home Lucero Iverson PA-C 11/02/25 1255 documented in this encounter Plan of Treatment Not on file documented as of this encounter Procedures Procedure Name Priority Date/Time Associated Diagnosis Comments CT ABDOMEN/PELVIS WITHOUT CONTRAST Routine 11/02/2025 11:24 AM EST CBC AND DIFFERENTIAL STAT 11/02/2025 9:45 AM EST CBC AND DIFFERENTIAL STAT 11/02/2025 9:45 AM EST BASIC METABOLIC PANEL (BMP) STAT 11/02/2025 9:45 AM EST URINALYSIS WITH REFLEX TO URINE CULTURE STAT 11/02/2025 9:18 AM EST URINE SEDIMENT STAT 11/02/2025 9:18 AM EST documented in this encounter Results * CT ABDOMEN/PELVIS WITHOUT CONTRAST (11/02/2025 11:24 AM EST) [facility]GB IMG CLINICAL ENGINEER COMMENT No acute process. 2.6 cm intermediate density lesion left kidney could represent a hemorrhagic/prot einaceous cyst or solid lesion. Recommend outpatient renal ultrasound 1-3 mo. [facility] IMG RECOMMENDATION COMMENT 2.6 cm intermediate density lesion interpolar region left kidney; Differential: 2.6 cm interpolar region left kidney hemorrhagic proteinaceous cyst; Differential: 2.6 cm interpolar region left kidney solid lesion [facility] Anatomical Region Laterality Modality Abdomen, Pelvis Computed Tomogra phy 11/02/2025 12:2 8 PM EST Impressions 11/02/2025 12:37 PM EST 1. No acute abnormality in the abdomen or pelvis. 2. 2.6 cm intermediate density lesion in the interpolar region of the left kidney could represent a hemorrhagic/proteinaceous cyst or solid lesion. Recommend outpatient renal ultrasound in 1 to 3 months for further evaluation. A clinically significant result was initiated on 11/02/2025 12:36 PM, Message ID [id number]. Follow-up recommendations were communicated and documented using a closed loop communication system. Narrative 11/02/2025 12:[address] ABDOMEN/PELVIS WITHOUT CONTRAST Referring clinician's provided indication for this examination in [facility]: Hematuria. TECHNIQUE: Multidetector-row CT of the abdomen and pelvis was performed without administration of intravenous contrast using tailored dose modulation techniques. Images were reconstructed in the axial, coronal, and sagittal planes. COMPARISON: None. FINDINGS: Lower Chest: Peripheral reticular opacities in the imaged lungs, most likely chronic. Nodular thickening of the right pleura at the lower chest (5:43). Liver: Normal density. Biliary: Noninflamed gallbladder. No biliary ductal dilatation. Spleen: No splenomegaly. Pancreas: Normal contour. No ductal dilatation. Adrenal Glands: No nodules. Kidneys/Ureters: Bilateral renal cysts. 2.6 cm intermediate density lesion in the interpolar region of the left kidney. Additional small renal lesions are difficult to characterize given its size. No stone or hydronephrosis Bowel: Colonic diverticulosis with no focal inflammation. No bowel obstruction. Normal appendix. Peritoneum/Retroperitoneum: No pneumoperitoneum or free fluid. Lymph Nodes: No lymphadenopathy. Pelvic Organs/Bladder: Distended urinary bladder coarse calcifications in the prostate. Vessels: Mild atheromatous calcifications. No aneurysm. Bones/Soft Tissues: Partially imaged ORIF in the left proximal femur. Extensive degenerative changes of the spine. Procedure Note Hillary Grace MD - 11/02/2025 CT ABDOMEN/PELVIS WITHOUT CONTRAST Referring clinician's provided indication for this examination in [facility]:Hematuria. TECHNIQUE: Multidetector-row CT of the abdomen and pelvis was performedwithout administration of intravenous contrast using tailored dosemodulation techniques. Images were reconstructed in the axial, coronal,and sagittal planes. COMPARISON: None. FINDINGS: Lower Chest: Peripheral reticular opacities in the imaged lungs, mostlikely chronic. Nodular thickening of the right pleura at the lower chest(5:43). Liver: Normal density. Biliary: Noninflamed gallbladder. No biliary ductal dilatation. Spleen: No splenomegaly. Pancreas: Normal contour. No ductal dilatation. Adrenal Glands: No nodules. Kidneys/Ureters: Bilateral renal cysts. 2.6 cm intermediate density lesionin the interpolar region of the left kidney. Additional small renallesions are difficult to characterize given its size. No stone orhydronephrosis Bowel: Colonic diverticulosis with no focal inflammation. No bowelobstruction. Normal appendix. Peritoneum/Retroperitoneum: No pneumoperitoneum or free fluid. Lymph Nodes: No lymphadenopathy. Pelvic Organs/Bladder: Distended urinary bladder coarse calcifications inthe prostate. Vessels: Mild atheromatous calcifications. No aneurysm. Bones/Soft Tissues: Partially imaged ORIF in the left proximal femur.Extensive degenerative changes of the spine. IMPRESSION: 1. No acute abnormality in the abdomen or pelvis. 2. 2.6 cm intermediate density lesion in the interpolar region of the leftkidney could represent a hemorrhagic/proteinaceous cyst or solid lesion.Recommend outpatient renal ultrasound in 1 to 3 months for furtherevaluation. A clinically significant result was initiated on 11/02/2025 12:36 PM,Message ID [id number]. Follow-up recommendations were communicated and documented using a closedloop communication system. Lucero Iverson PA-C IMG CT ABD/PELVI S Final Result * (ABNORMAL) CBC and Differential (11/02/2025 9:45 AM EST) WBC 7.28 4.00 - 11.00 K/uL 11/02/2025 9:50 AM [facility] RBC 4.43(L) 4.50 - 5.90 M/uL 11/02/2025 9:50 AM [facility] Hemoglobin 14.5 13.5 - 17.5 g/dL 11/02/2025 9:50 AM [facility] Hematocrit 41.8 41.0 - 53.0 % 11/02/2025 9:50 AM [facility] MCV 94.4 80.0 - 100.0 fL 11/02/2025 9:50 AM [facility] MCH 32.7(H) 27.0 - 31.0 pg 11/02/2025 9:50 AM [facility] MCHC 34.7 32.0 - 36.0 g/dL 11/02/2025 9:50 AM [facility] MPV 9.0 8.4 - 12.0 fL 11/02/2025 9:50 AM [facility] RDW-CV 13.6 11.5 - 14.5 % 11/02/2025 9:50 AM [facility] PLT 163 150 - 450 K/uL 11/02/2025 9:50 AM [facility] Neutrophils 71.8 % 11/02/2025 9:50 AM [facility] Lymphocytes 15.9 % 11/02/2025 9:50 AM [facility] Monocytes 8.4 % 11/02/2025 9:50 AM [facility] Eosinophils 3.0 % 11/02/2025 9:50 AM [facility] Basophils 0.5 % 11/02/2025 9:50 AM [facility] Imm Grans 0.4 % 11/02/2025 9:50 AM [facility] NRBC 0.0 <=0.0 /100 WBCs 11/02/2025 9:50 AM [facility] Absolute Neutrophils 5.22 1.92 - 7.60 K/uL 11/02/2025 9:50 AM [facility] Absolute Lymphocytes 1.16 0.72 - 4.10 K/uL 11/02/2025 9:50 AM [facility] Absolute Monocytes 0.61 0.16 - 1.10 K/uL 11/02/2025 9:50 AM [facility] Absolute Eosinophils 0.22 0.00 - 0.50 K/uL 11/02/2025 9:50 AM [facility] Absolute Basophils 0.04 0.00 - 0.15 K/uL 11/02/2025 9:50 AM [facility] Absolute Imm Grans 0.03 0.00 - 0.09 K/uL 11/02/2025 9:50 AM [facility] Absolute NRBC 0.00 <=0.00 K cells/uL 11/02/2025 9:50 AM [facility] Absolute Neutrophils 5.22 1.92 - 7.60 K/uL 11/02/2025 9:50 AM [facility] Comment:Automated cell count . Manual ANC may differ if performed. Diff Type Auto 11/02/2025 9:50 AM [facility] Blood (Blood) Venipuncture / Unknown 11/02/2025 9:45 AM EST 11/02/2025 9:48 AM EST Lucero Iverson PA-C LAB BLOOD BKR OR DERABLES Final Result [facility] [address] [place] [address] * (ABNORMAL) Basic Metabolic Panel (BMP) (11/02/2025 9:45 AM EST) Sodium 141 136 - 145 mmol/L 11/02/2025 10:25 AM [facility] Potassium 4.6 3.4 - 5.1 mmol/L 11/02/2025 10:25 AM [facility] Chloride 104 98 - 107 mmol/L 11/02/2025 10:25 AM [facility] CO2 24 20 - 31 mmol/L 11/02/2025 10:25 AM [facility] BUN 33(H) 6 - 23 mg/dL 11/02/2025 10:25 AM [facility] Creatinine 1.70(H) 0.60 - 1.30 mg/dL 11/02/2025 10:25 AM [facility] Glucose 121(H) 70 - 99 mg/dL 11/02/2025 10:25 AM [facility] Calcium 9.5 8.5 - 10.5 mg/dL 11/02/2025 10:25 AM [facility] eGFR 40(L) >59 mL/min/1.7 3m2 11/02/2025 10:25 AM [facility] Comment:Estimated glomerular filtration rate calculated using the CKD-EPI refit equation. Anion Gap 13 3 - 17 mmol/L 11/02/2025 10:25 AM [facility] Blood (Blood) Venipuncture / Unknown 11/02/2025 9:45 AM EST 11/02/2025 9:48 AM EST Lucero Iverson PA-C LAB BLOOD BKR OR DERABLES Final Result Performing Organization Address [facility]/ZIP Co de Phone Number [address] [address] * (ABNORMAL) URINE SEDIMENT (11/02/2025 9:18 AM EST) WBC 3-5 0 - 9 /hpf 11/02/2025 9:37 AM [facility] RBC >100(A) 0 - 2 /hpf 11/02/2025 9:37 AM [facility] Urine (Urine, Voided) Non-Blood Collection / Unknown 11/02/2025 9:18 AM EST 11/02/2025 9:21 AM EST Lucero Iverson PA-C LAB URINE ORDERA BLES Final Result Performing Organization Address [facility] Co de Phone Number [address] [address] * (ABNORMAL) Urinalysis with Reflex to Urine Culture (11/02/2025 9:18 AM EST) Color Red(A) Yellow 11/02/2025 9:32 AM [facility] Comment:Abnormal urine color may be associated with false-positive results. Interpret results with caution. Clarity Cloudy(A) Clear 11/02/2025 9:32 AM [facility] Glucose Negative Negative 11/02/2025 9:32 AM [facility] Bilirubin Urine Negative Negative 9:32 AM [facility] Ketone Urine Negative Negative 11/02/2025 9:32 AM [facility] Specific [place] 1.020 1.001 - 1.035 11/02/2025 9:32 AM [facility] Blood 3+(A) Negative 11/02/2025 9:32 AM [facility] pH 6.0 5.0 - 8.0 11/02/2025 9:32 AM EST [facility] Protein 2+(A) Negative 11/02/2025 9:32 AM EST [facility] Nitrites Negative Negative 11/02/2025 9:32 AM EST [facility] Leukocyte Esterase Negative Negative 11/02/2025 9:32 AM EST [facility] Urobilinogen Negative Negative 11/02/2025 9:32 AM EST [facility] Urine (Urine, Voided) Non-Blood Collection / Unknown 11/02/2025 9:18 AM EST 11/02/2025 9:21 AM EST us Lucero Iverson PA-C LAB URINE ORDERA BLES Final Result [facility] [address] [place] [address] documented in this encounter Visit Diagnoses Diagnosis Painless hematuria- Primary Elevated serum creatinine Other nonspecific findings on examination of blood Renal cyst Unspecified congenital cystic kidney disease documented in this encounter Care Teams Vocal Teacher Relationship Specialty Start Date End Date Kojo Armenta DO [address] [place] [address] [email or web address] PCP - General Internal Medicine 11/02/25 Kojo Armenta DO [address] [place] [address] Insurance Assigned Provider 02/27/24 documented as of this encounter Additional Source Comments The information contained in this document represents components of the legal health record. It is not the complete legal health record.[facility]
--- OUTSIDE RECORDS SUMMARY | 2025-11-07 18:03 | XMS_ITS | Continuity of Care Document ---
Author Organization [facility] Internal Medicine, [facility] Internal Medicine Address [address] [facility] [place] [address] Assessment Encounter Date Assessment Date Assessment LastModified by Organization Details LastModified Time 11/06/2025 11/06/2025 [address] [place] [address] (HEADER UP) MDM MODERATE MUST MEET 2 OUT OF 3 ELEMENTS: PROBLEMS, DATA OR RISK ELEMENT 1: PROBLEMS ADDRESSED 1 OR MORE CHRONIC ILLNESS WITH EXACERBATION OR 2 OR MORE STABLE CHRONIC ILLNESSES OR 1 UNDIAGNOSED NEW PROBLEM OR 1 ACUTE ILLNESS W/SYMPTOMS OR 1 ACUTE COMPLICATED INJURY ELEMENT 2: DATA MUST MEET 1 OF 3 CATEGORIES CATEGORY 1: REVIEW OF PRIOR EXTERNAL NOTES, REVIEW OF RESULTS, ORDERING OF EACH TEST, ASSESSMENT REQUIRING INDEPENDENT HISTORIAN OR CATEGORY 2: INDEPENDENT INTERPRETATION OF TESTS BY ANOTHER PHYSICIAN OR SPECIALIST OR CATEGORY 3: DISCUSSION OF MGT OR TEST INTERPRETATION W/EXTERNAL PHYSICIAN OR SPECIALIST ELEMENT 3: RISK RISK OF COMPLICATIONS AND/OR MORBIDITY OR MORTALITY OF PATIENT MANAGEMENT PROVIDER MUST THOROUGHLY DOCUMENT EACH ELEMENT THAT IS COVERED Not available 11/06/2025 15:38:45 Plan of Treatment Reminders Order Date Submit Date Provider Last Modified By Organization Details Last Modified Time Details Appointments None recorded. Lab cytology, urine 2024 025 [facility], [address] [place] [address], [place], [address], 15:40:31 urinalysis complete, reflex culture 2024 025 [facility], [address] [place] [address], [address], 15:40:31 Referral urologist referral - urine for cytology is pending 2024 025 [email or web address] Ortiz Robertson MD, [address], [place], [address], 5 15:54:44 Procedures None recorded. Surgeries None recorded. Imaging None recorded. Medication Orders None recorded. Patient TargetsNo targets recorded. Patient InstructionsNo instructions recorded. Reason for Referral Urologist Referral for Painl ess hematuria urine for cytology is pending Referring Physician: Kojo Armenta, Internal Medicine, Encounter Date: 11/06/2025 Results Created Date Observation Date Name Description Value Unit Range Abnormal Flag Note LastModifiedBy Organization Detail LastModifiedTime 11/02/20 25 11/02/2025 CT, abdom en + pelvi s, w/o contr ast No observ ation record ed. [facility] (Emergency Room) [address] [place] [address], [address], 11/03/2025 09:09:48 Result Notes None recorded. Problems Name Problem SNOMED Code Status Onset Date Resolution Date Notes Provider Name and Address Organization Details Recorded Time Coronary arterios clerosis 52226203 Active 2005 2 stents 2006 Michell bryant [facility] Internal Medicine 5 10:41:37 [facility] hyperten maurisio 36539321 Active 2017 Michell bryant [facility] 5 10:41:37 Gastroes ophageal reflux disease 456095353 Active 2017 [facility] 5 10:41:37 Venous varices 511295007 Active 2017 Michell bryant [facility] 5 10:41:37 Benign prostati c hyperpla abdias 038906508 Active 2017 [facility]ant [facility] 5 10:41:37 Polyp of colon 24262431 Active 2017 adenomato us Michell bryant [facility] Medicine 5 10:41:37 Divertic ulitis 763950450 Active 2017 sigmoid [facility] 5 10:41:37 Blood in urine 85048795 Active 2017 [facility] 5 10:41:24 Tendinit is 65748443 Active 2017 Left rotator [facility] 5 10:41:24 Edema of lower extremit y 608614729 Active 2018 Kojo Armenta, DO [address] [place], [address], [place] [facility] 9 10:00:40 Primary erectile dysfunct ion 242049991 Active 2018 Kojo Armenta, DO [address] [place] [address], [address], [facility] 9 10:01:14 Acute tear of medial meniscus of right knee 79930159769 332815 Active 2021 [facility] 5 10:41:24 Tear of medial meniscus of knee 881759024 Active 2021 [facility] 5 10:41:24 Ankle pain 385469688 Active 2022 [facility] 5 10:41:24 Ankle pain 658182354 Active 2022 [facility] 5 10:41:24 Hyperlip idemia 26710518 Active 2022 [facility] 5 10:41:37 Uric acid level above referenc e range 14654012 Active 2022 [facility] 5 10:41:37 Gout 00323301 Active 2022 [facility] 5 10:41:37 Herpes zoster 4082662 Active 2022 [facility] 5 10:41:24 Varicose veins of lower extremit y 11448590 Active 2023 [facility]hell [facility] 5 10:41:37 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 09718539303 01 Active 2024 Kojo Armenta, [address], [address], [facility] 5 10:32:31 Cat scratch injury 668691497 Active 2024 PER HAMMOND [address] [place], [address], [facility] Internal [facility] 5 14:21:26 Neftaly hematuri a 244230942 Active 2024 Kojo Armenat, [address], [address], [facility] 5 22:33:42 Painless hematuri a 157909770 Active 2024 Kojo Armenta, [address], [address], [facility] Internal [facility] 5 15:29:08 Notes:pseudomonas Problem Notes None recorded. Medical Equipment None Reported. Allergies Allergen ID Allergen Name Allergen Category Reaction Reaction Severity Criticality Documentation Date Start Date Code Code System Note Provider Name and Address Organization Details Recorded Time 17615 terazosin medicatio n Not available Not available unabletoasse ss 11/03/20252010 26054 RxNorm Not Available jf - External Data [employer] - prod 5 06:58:17 13776 Penicilli n Not available Not available Not available Not available 11/03/20252023 72079 RxNorm Not Available [employer] External Data Service - prod 06:58:28 1988 Substance with sulfonami de structure and antibacte rial mechanism of action (substanc e) medicatio n rash Not available Not available 06/16/2018 80533 8003 SN[facility]ED [facility] 8 14:00:13 1988 Product containin g penicilli n (product) medicatio n rash Not available Not available 06/16/2018 09044 8001 [facility] 8 14:00:31 1989 amlodipin e medicatio n edema Not available Not available 06/16/2018 69701 RxNorm [facility] 8 14:00:54 1990 lisinopri l medicatio n Not available Not available Not available 06/16/2018 73144 RxNorm raise d K+ [facility] 8 14:01:35 1991 Product containin g angiotens in-conver ting enzyme inhibitor (product) medicatio n Not available Not available Not available 06/16/2018 31306 009 [facility] 8 14:01:51 1992 Product containin g angiotens in II receptor antagonis t (product) medicatio n Not available Not available Not available 06/16/2018 20369 008 [facility] 8 14:02:08 Medications Name Sig Start Date Stop Date Status Note LastModified by Organization Details LastModified Time atorvastati n 40 mg tablet TAKE 1 TABLET BY MOUTH ONCE DAILY active Not Available Not Available No t Available prednisone 10 mg tablet TAKE 4 TABLETS BY MOUTH ONCE DAILY FOR 2 DAYS THEN 3 ONCE DAILY FOR 2 DAYS THEN 2 ONCE DAILY FOR 2 DAYS THEN 1 ONCE DAILY FOR 2 DAYS 08/04 completed Not Available Not Available Not Available doxycycline hyclate 100 mg capsule Take 1 capsule twice a day by oral route for 7 days. 08/08 completed Not Available Not Available Not Available azithromyci n 250 mg tablet TAKE 2 TABLETS (500 MG) BY ORAL ROUTE ONCE DAILY FOR 1 DAY THEN 1 TABLET (250 MG) BY ORAL ROUTE ONCE DAILY FOR 4 DAYS 03/21 completed Not Available Not Available Not Available metoprolol tartrate 100 mg tablet Take 1 tablet by oral route. 06/29 completed Not Available Not Available Not Available metoprolol succinate ER 100 mg tablet,exte nded release 24 hr TAKE 1 TABLET BY MOUTH ONCE DAILY active Not Available Not Available No t Available chlorthalid one 25 mg tablet TAKE 1 TABLET BY MOUTH ONCE DAILY active Not Available Not Available No t Available amlodipine 5 mg tablet Take 1 tablet by mouth once daily 02/23 completed Not Available Not Available Not Available allopurinol 100 mg tablet TAKE 2 TABLETS BY MOUTH ONCE DAILY active Not Available Not Available No t Available valacyclovi r 500 mg tablet TAKE 1 TABLET BY MOUTH ONCE DAILY active Not Available Not Available No t Available aspirin 81 mg tablet,jocelyn yed release Take 1 tablet every day by oral route. active Not Available Not Available No t Available tamsulosin 0.4 mg capsule TAKE 1 CAPSULE BY MOUTH ONCE DAILY active Not Available Not Available No t Available amlodipine 10 mg tablet TAKE 1 TABLET BY MOUTH ONCE DAILY active Not Available Not Available No t Available Gentle Laxative (bisacodyl) 5 mg tablet,jocelyn yed release 12/29 completed Not Available Not Available Not Available diclofenac sodium 75 mg tablet,jocelyn yed release TAKE 1 TABLET BY MOUTH TWICE DAILY 12/29 completed Not Available Not Available Not Available Viagra 100 mg tablet 12/07 completed Not Available Not Available Not Available colchicine 0.6 mg tablet TAKE 2 TABLETS BY MOUTH ONCE, THEN TAKE 1 TAB ONE HOUR LATER ONE TIME 05/05 completed Not Available Not Available Not Available fluocinonid e 0.05 % topical cream 06/08 completed Not Available Not Available Not Available omeprazole active Not Available Not Av ailable Not Available GaviLyte-G 236 gram-22.74 gram-6.74 gram-5.86 gram oral solution 12/29 completed Not Available Not Available Not Available Prolensa 0.07 % eye drops PLACE 1 DROP into SURGICAL EYE(S) ONCE DAILY AT breakfast , START 2 DAYS PRIOR TO SURGERY 11/06 completed Not Available Not Available Not Available Shingrix (PF) 50 mcg/0.5 mL intramuscul ar suspension, kit 05/31 completed Not Available Not Available Not Available allopurinol 200 mg tablet Take 1 tablet every day by oral route for 90 days. 08/04 completed Not Available Not Available Not Available Vitals Date Recorded Body height Body mass index (BMI) Body weight Heart rate Oxygen saturation Systolic And Diastolic Provider Name and Address Organization Details Last Updated DateTime 5 170.18 cm 29.7 kg/m2 60969.3 9 g 69 /min 94 % 130/70 mm[Hg] Giovanna Vincent [facility] Internal [facility] 5 15:17:14 Social History Question Answer Notes LastModified by Organizat ion Details LastModified Time Tobacco Smoking Status Former Smoker Not Available [employer] 09/25/2020 03:36:23 What Was The Date Of Your Most Recent Tobacco Screening? 11/06/2025 [email or web address] Information not available 11/06/2025 Sex: Unknown Functional Status Question Answer Note LastModified by Organization D etails LastModified Time Do you or have you ever used any other forms of tobacco or nicotine? No [email or web address] Information not available 02/10/2024 Mental Status None recorded. Family History Nothing Reported. Medical History No medical history recorded. Immunizations Vaccine Type Date Status Note Provider Nam e and Address Organization Details Recorded Time COVID-19, mRNA, LNP-S, PF, 30 mcg/0.3 mL dose 12/25/19 completed Sybil bryant [facility] 05/29/2021 08:53:23 COVID-19, mRNA, LNP-S, PF, 30 mcg/0.3 mL dose 01/15/20 21 [facility] 05/29/2021 08:53:29 Influenza, split virus, quadrivalent, preservative 09/24/20 21 [facility] [place] 09/24/2021 10:31:46 Tdap 09/27/20 21 completed Kojo Armenta DO [address] [place] [address], [address], [facility] 09/28/2021 08:03:30 Pneumococcal conjugate PCV 13 09/27/20 21 completed Kojo Armenta DO [address] [place] [address], [address], [facility] 09/28/2021 08:03:57 zoster, unspecified formulation 11/23/19 21 completed [facility] 10/21/2021 16:31:05 zoster, unspecified formulation 09/24/20 21 completed [facility] 10/21/2021 16:31:14 COVID-19, mRNA, LNP-S, PF, 30 mcg/0.3 mL dose 08/20/20 21 completed Shannon bryant [facility] 10/21/2021 16:32:18 COVID-19, mRNA, LNP-S, PF, 30 mcg/0.3 mL dose 10/06/20 22 completed Kojo Armenta, DO [address] [place], [address], [facility] 10/06/2022 11:11:40 Influenza, split virus, quadrivalent, preservative 10/06/20 22 completed Kojo Armenta, DO [address] [place], [address], [facility] 10/06/2022 11:12:38 Pneumococcal conjugate PCV20, polysaccharide [id number] conjugate, adjuvant, PF 06/22/20 23 completed Trevon Armenta [facility] 06/22/2023 16:24:52 RSV, recombinant, protein subunit RSVpreF, adjuvant reconstituted, 0.5 mL, PF 09/27/20 24 completed Michell Moise [facility] 09/28/2024 08:11:11 influenza, unspecified formulation 12/30/19 25 completed [facility] 12/30/2024 09:43:44 zoster, unspecified formulation 12/16/19 20 completed [facility] 12/16/2019 10:56:47 zoster, unspecified formulation 06/25/20 20 [facility] 06/25/2020 13:55:51 Past Encounters Encounter ID Performer Location Encounter Start Date Encounter Closed Date Diagnosis/Indication Diagnosis SNOMED-CT Code Diagnosis ICD10 Code Diagnosis IMO Codes Diagnosis Note [id number] Kojo Armenta DO [facility] [address] [facility] [address] 11/06/2025 15:09:11 11/06/2025 15:54:44 Essential hypertension 68700156 I10 -electroly maikel WNL -continue with chlorthali done -Blood pressures within goal range Hyperlipidemia 21184904 E78.2 stable and will follow Depression screening 171 345341 Z13.31 neg Painless hematuria 88142 8001 R31.9 342301 needs urology follow up Health Concerns Section Related Observation LastModified by Organization Detai ls LastModified Time None Recorded Concern Status LastModified by Organization Details LastModified Time None Recorded Payers Encounter Date Sequence Insurance Name Policy Number Policy Garzon Covered Member ID Garzon Member ID Guarantor Name 11/06/2025 1 [facility] [id number] Sagrario Andrade [id number] Osmany Andrade Notes Date Note Type Note Provider Name and Address Organization Details Recorded Time 11/06/20 25 text/htm l Care Management - HypertensionReported by PatientHPIFor self care, patient reportsnot under emotional stress. For severity, patient reportssymptoms are improvinganddoes not interfere with daily activities. For associated symptoms, patient reportsno dizziness,no lightheadedness,no chest pain,no shortness of breath,no palpitations,no edema,no calf muscle cramps,no blurred vision,no confusion,no headaches, andno fatigue. Emergency Department Follow-Up RecordReported by Patient Care Management - HyperlipidemiaReported by PatientHPIFor control, patient reportsusually well controlled,improving, andat goal. For complications, patient reportsno coronary artery disease,no heart attack,no cardiovascular disease,no pancreatitis, andno stroke.ROS as noted in the HPI seen in ER for hematuria Kojo Armenta, [address] [facility], [place], [address], [facility] 11/06/2025 15:39:06
--- OUTSIDE RECORDS SUMMARY | 2025-11-07 18:03 | XMS_ITS | Encounter Summary ---
Author Organization [facility] Address [address] [place] [address] [place] [address] Phone Care Team Providers Care Superintendent Horticulture Name Role Phone Kojo Armenta Primary Care Provider [phone] Bigda, Kojo Marcellus DO Unavailable Kathi, Kojo Marcellus DO Primary Care Provider [phone] Encounter Details Date Type Department Care Team (Late st Contact Info) Description 04/01/2024 Procedure Pass [facility]oscopy Admitting Dept Virtual Department [address] [place] [address] Social History Tobacco Use Types Packs/Day Years [...] on filedocumented in this encounter Care Teams Superintendent Horticulture Relationship Specialty Start Date End Date Kojo Armenta DO [email or web address] PCP - General 09/07/17 11/01/25 Kojo Armenta DO [address] [place] [address] [email or web address] PCP - General Internal Medicine 11/02/25 Kojo Armenta DO [address] [place] [address] [email or web address] Insurance Assigned Provider 02/27/24 documented as of this encounter Additional Source Comments The information contained in this document represents components of the legal health record. It is not the complete legal health record.[facility]
--- OUTSIDE RECORDS SUMMARY | 2025-11-07 18:03 | XMS_ITS | Encounter Summary ---
Author Organization [facility] Address [address] [place] [address] Phone Care Team Providers Care Engineering Design Supervisor Name Role Phone Kathi Kojo Germain DO Primary Care Provider [phone] Kojo Armenta DO Unavailable Kojo Armenta DO Primary Care Provider [phone] Encounter Details Date Type Department Care Team (Late st Contact Info) Description 12/21/2017 Ancillary Orders [facility], X-Ray - [facility] [address] [place] [address] Kojo Armenta, [address] [facility] [place] [address] [place] [address] [email or web address] Tendonitis Social History Tobacco Use Types Packs/Day [...] site documented in this encounter Care Teams Engineering Design Supervisor Relationship Specialty Start Date End Date Kojo Armenta DO PCP - General 09/07/17 11/01/25 Kojo Armenta DO [address] [place] [address] PCP - General Internal Medicine 11/02/25 Kojo Armenta DO [address] [place] [address] Insurance Assigned Provider 02/27/24 documented as of this encounter Additional Source Comments The information contained in this document represents components of the legal health record. It is not the complete legal health record.[facility]
--- OUTSIDE RECORDS SUMMARY | 2025-11-07 18:03 | XMS_ITS | Encounter Summary ---
Author Organization [facility] Address [address] [place] [address] Phone Care Team Providers Care Auto Service Instructor Name Role Phone Heracliosebastián Kojo Marcellus Primary Care Provider [phone] Kojo Armenta DO Unavailable Kojo Armenta Marcellus Primary Care Provider [phone] Encounter Details Date Type Department Care Team (Late st Contact Info) Description 03/21/2022 Procedure Pass [facility], [address] [address] Social History Tobacco Use Types Packs/Day Years [...] on filedocumented in this encounter Care Teams Auto Service Instructor Relationship Specialty Start Date End Date Kojo Armenta DO , [email or web address] PCP - General 09/07/17 11/01/25 Kojo Armenta DO [address] [place] [address] [place] [address] , [email or web address] PCP - General Internal Medicine 11/02/25 Kojo Armenta DO [address] [place] [address] [email or web address] Insurance Assigned Provider 02/27/24 documented as of this encounter Additional Source Comments The information contained in this document represents components of the legal health record. It is not the complete legal health record.[facility]
--- OUTSIDE RECORDS SUMMARY | 2025-11-07 18:03 | XMS_ITS | Encounter Summary ---
Author Organization [facility] Address [address] [place] [address] Phone Care Team Providers Care Combat Systems Officer Name Role Phone Kojo Armenta DO Primary Care Provider [phone] Kojo Amrenta DO Unavailable Kojo Armenta DO Primary Care Provider [phone] Reason for Referral * MRI/CAT Scan - Closed Specialty Diagnoses / Procedures Referred By Fareed bobo Referred To Contact Radiology Diagnoses Other tear of medial meniscus, current injury, right knee, subsequent encounter Procedures MRI Knee (Right) CHG MRI LOWER EXTREM JT, W/O CONTRAST Kojo Armenta DO Phone: tel: fax: [email or web address] [email or web address] [address] [place], [place] Phone: tel: Referral ID Status Reason Start Date Expiration Date Visits Re quested Visits Authorized [id number] Closed 04/06/2022 05/06/2022 1 1 Encounter Details Date Type Department Care Team (Late st Contact Info) Description 03/21/2022 Transcribe Orders [facility] Department [address] [place] [address] Kojo Armenta DO [address] [place] [address] [place] [address] [email or web address] Other tear of medial meniscus, current injury, [...] Gonzales's cyst and 3 mm loose body. Kojo Armenta DO IMG MR EXTREMITY Final Result documented in this encounter Visit Diagnoses Diagnosis Other tear of medial meniscus, current injury, right knee, subsequent encounter- Primary Other tear of medial meniscus, current injury, right knee, subsequent encounter documented in this encounter Care Teams Combat Systems Officer Relationship Specialty Start Date End Date Kojo Armenta DO [email or web address] PCP - General 09/07/17 11/01/25 Kojo Armenta DO [address] [place] [address] [email or web address] PCP - General Internal Medicine 11/02/25 Kojo Armenta DO [address] [place] [address] [email or web address] Insurance Assigned Provider 02/27/24 documented as of this encounter Additional Source Comments The information contained in this document represents components of the legal health record. It is not the complete legal health record.[facility]
--- OUTSIDE RECORDS SUMMARY | 2025-11-07 18:03 | XMS_ITS | Clinical Summary ---
Author Organization [facility] Address [address] [place] [address] Phone Care Team Providers Care Workers' Compensation Hearings Officer Name Role Phone Kojo Armenta DO Unavailable KathiKojo Primary Care Provider [phone] Allergies Active Allergy Reactions Criticality Noted Date Comments Anthony Inhibitors 06/20/2022 Other reaction(s): hyperlakemia Amlodipine 06/20/2022 Other reaction(s): Edema Arb-Angiotensin Receptor Antagonist 06/20/2022 Penicillin Medium 06/20/2022 Other reaction(s): rash Penicillins Rash Low 12/09/2011 Other reaction(s): RASH Sulfa (Sulfonamide Antibiotics) Rash Low 06/20/2022 Terazosin 06/20/2022 Medications sildenafil (VIAGRA) 100 mg tablet 1 tablet as needed 0 Active atorvastatin (LIPITOR) 40 MG tablet Take 40 mg by mouth daily. 0 Active metoprolol tartrate (LOPRESSOR) 100 MG [...] Take 1 tablet by mouth daily. Active tamsulosin (FLOMAX) 0.4 mg Cap Take 0.4 mg by mouth daily. Active Encounters Date Type Department Care Team Description 11/02/2025 8:54 AM EST - 11/02/2025 1:00 PM EST Emergency [facility] [address] [place] [address] Discharge Disposition: Home or Self Care 11/02/2025 Procedure Pass [facility], Ct Scan - [facility] [address] [place] [address] from Last 3 Months Social History Tobacco Use Types Packs/Day Years [...] Mass Index 25.84 11/02/2025 8:31 AM EST Plan of Treatment Health Maintenance Due Date Last Done Comments DEPRESSION SCREENING 1957 SMOKING Hx and SMOKELESS TOBACCO SCREENING 1958 RSV VACCINE (1 - 1-dose 75+ series) 2020 PNEUMOCOCCAL VACCINES (50+ years) (2 of 2 - PCV20 or PCV21) 09/27/2022 09/27/2021 INFLUENZA VACCINE (#1) 2025 10/06/2022, 2020 COVID-19 VACCINE ( season) 2025 10/06/2022, 08/20/2021, 01/15/2021, Additional history exists CREATININE LEVEL 11/02/2026 11/02/2025, 08/22/2024 POTASSIUM LEVEL 11/02/2026 11/02/2025, 08/22/2024 LIPID PANEL 08/22/2029 08/22/2024, 0407/2024, 02/24/2023, Additional history exists Adult Td,Tdap Booster 09/27/2031 09/27/2021 ZOSTER VACCINES Completed 09/24/2021, 0 11/2020, 06/25/2020, Additional history exists HEPATITIS A [...] this topic Medical Devices Implanted Type Area Cardiac Monitor Device Identifier Shelf Expiration Date Model / Serial / Lot Left Leg Cardiac Stents Procedures Procedure Name Priority Date/Time Associated Diagnosis Comments CT ABDOMEN/PELVIS WITHOUT CONTRAST Routine 11/02/2025 11:24 AM EST CBC AND DIFFERENTIAL STAT 11/02/2025 9:45 AM EST BASIC METABOLIC PANEL (BMP) STAT 11/02/2025 9:45 AM EST CBC AND DIFFERENTIAL STAT 11/02/2025 9:45 AM EST URINE SEDIMENT STAT 11/02/2025 9:18 AM EST URINALYSIS WITH REFLEX TO URINE CULTURE STAT 11/02/2025 9:18 AM EST LIPID PANEL Routine 08/22/2024 8:16 AM EDT Encounter for general adult medical examination with abnormal findings from Last 3 Months or Most Recently Relevant to Health Maintenance Results * CT ABDOMEN/PELVIS WITHOUT CONTRAST (11/02/2025 11:24 AM EST) [facility] IMG FLOATING LABOR GANG SUPERVISOR COMMENT No acute process. 2.6 cm intermediate density lesion left kidney could represent a hemorrhagic/prot einaceous cyst or solid lesion. Recommend outpatient renal ultrasound 1-3 mo. [facility] IMG RECOMMENDATION COMMENT 2.6 cm intermediate density lesion interpolar region left kidney; Differential: 2.6 cm interpolar region left kidney hemorrhagic proteinaceous cyst; Differential: 2.6 cm interpolar region left kidney solid lesion [facility] Anatomical Region Laterality Modality Abdomen, Pelvis Computed [...] initiated on 11/02/2025 12:36 PM, Message ID [id number]. Follow-up recommendations were communicated and documented using a closed loop communication system. Narrative 11/02/2025 12:[address] ABDOMEN/PELVIS WITHOUT CONTRAST Referring clinician's provided indication for this examination in [facility]: Hematuria. TECHNIQUE: Multidetector-row CT of the abdomen [...] clinician's provided indication for this examination in [facility]:Hematuria. TECHNIQUE: Multidetector-row CT of the abdomen and [...] was initiated on 11/02/2025 12:36 PM,Message ID [id number]. Follow-up recommendations were communicated and documented using a closedloop communication system. Lucero Iverson PA-C IMG CT ABD/PELVI S Final Result * (ABNORMAL) CBC and Differential (11/02/2025 9:45 AM EST) WBC 7.28 4.00 - 11.00 K/uL 11/02/2025 9:50 AM [facility] RBC 4.43(L) 4.50 - 5.90 M/uL 11/02/2025 9:50 AM [facility] Hemoglobin 14.5 13.5 - 17.5 g/dL 11/02/2025 9:50 AM [facility] Hematocrit 41.8 41.0 - 53.0 % 11/02/2025 9:50 AM [facility] MCV 94.4 80.0 - 100.0 fL 11/02/2025 9:50 AM [facility] MCH 32.7(H) 27.0 - 31.0 pg 11/02/2025 9:50 AM [facility] MCHC 34.7 32.0 - 36.0 g/dL 11/02/2025 9:50 AM [facility] MPV 9.0 8.4 - 12.0 fL 11/02/2025 9:50 AM [facility] RDW-CV 13.6 11.5 - 14.5 % 11/02/2025 9:50 AM [facility] PLT 163 150 - 450 K/uL 11/02/2025 9:50 AM [facility] Neutrophils 71.8 % 11/02/2025 9:50 AM [facility] Lymphocytes 15.9 % 11/02/2025 9:50 AM [facility] Monocytes 8.4 % 11/02/2025 9:50 AM [facility] Eosinophils 3.0 % 11/02/2025 9:50 AM [facility] Basophils 0.5 % 11/02/2025 9:50 AM [facility] Imm Grans 0.4 % 11/02/2025 9:50 AM [facility] NRBC 0.0 <=0.0 /100 WBCs 11/02/2025 9:50 AM [facility] Absolute Neutrophils 5.22 1.92 - 7.60 K/uL 11/02/2025 9:50 AM [facility] Absolute Lymphocytes 1.16 0.72 - 4.10 K/uL 11/02/2025 9:50 AM [facility] Absolute Monocytes 0.61 0.16 - 1.10 K/uL 11/02/2025 9:50 AM [facility] Absolute Eosinophils 0.22 0.00 - 0.50 K/uL 11/02/2025 9:50 AM [facility] Absolute Basophils 0.04 0.00 - 0.15 K/uL 11/02/2025 9:50 AM [facility] Absolute Imm Grans 0.03 0.00 - 0.09 K/uL 11/02/2025 9:50 AM [facility] Absolute NRBC 0.00 <=0.00 K cells/uL 11/02/2025 9:50 AM [facility] Absolute Neutrophils 5.22 1.92 - 7.60 K/uL 11/02/2025 9:50 AM [facility] Comment:Automated cell count . Manual ANC may differ if performed. Diff Type Auto 11/02/2025 9:50 AM [facility] Blood (Blood) Venipuncture / Unknown 11/02/2025 9:45 AM EST 11/02/2025 9:48 AM EST us Lucero Iverson PA-C LAB BLOOD BKR OR DERABLES Final Result Performing Organization Address City/[facility]/ZIP Co de Phone Number [address] [address] * (ABNORMAL) Basic Metabolic Panel (BMP) (11/02/2025 9:45 AM EST) Sodium 141 136 - 145 mmol/L 11/02/2025 10:25 AM [facility] Potassium 4.6 3.4 - 5.1 mmol/L 11/02/2025 10:25 AM [facility] Chloride 104 98 - 107 mmol/L 11/02/2025 10:25 AM [facility] CO2 24 20 - 31 mmol/L 11/02/2025 10:25 AM [facility] BUN 33(H) 6 - 23 mg/dL 11/02/2025 10:25 AM [facility] Creatinine 1.70(H) 0.60 - 1.30 mg/dL 11/02/2025 10:25 AM [facility] Glucose 121(H) 70 - 99 mg/dL 11/02/2025 10:25 AM [facility] Calcium 9.5 8.5 - 10.5 mg/dL 11/02/2025 10:25 AM [facility] eGFR 40(L) >59 mL/min/1.7 3m2 11/02/2025 10:25 AM [facility] Comment:Estimated glomerular filtration rate calculated using the CKD-EPI refit equation. Anion Gap 13 3 - 17 mmol/L 11/02/2025 10:25 AM [facility] Blood (Blood) Venipuncture / Unknown 11/02/2025 9:45 AM EST 11/02/2025 9:48 AM EST us Lucero Iverson PA-C LAB BLOOD BKR OR DERABLES Final Result [address] [place] [address] * (ABNORMAL) Urinalysis with Reflex to Urine Culture (11/02/2025 9:18 AM EST) Color Red(A) Yellow 11/02/2025 9:32 AM [facility] Comment:Abnormal urine color may be associated with false-positive results. Interpret results with caution. Clarity Cloudy(A) Clear 11/02/2025 9:32 AM [facility] Glucose Negative Negative 11/02/2025 9:32 AM [facility] Bilirubin Urine Negative Negative 9:32 AM [facility] Ketone Urine Negative Negative 11/02/2025 9:32 AM [facility] Specific [place] 1.020 1.001 - 1.035 11/02/2025 9:32 AM [facility] Blood 3+(A) Negative 11/02/2025 9:32 AM [facility] pH 6.0 5.0 - 8.0 11/02/2025 9:32 AM [facility] Protein 2+(A) Negative 11/02/2025 9:32 AM [facility] Nitrites Negative Negative 11/02/2025 9:32 AM [facility] Leukocyte Esterase Negative Negative 11/02/2025 9:32 AM [facility] Urobilinogen Negative Negative 11/02/2025 9:32 AM [facility] Urine (Urine, Voided) Non-Blood Collection / Unknown 11/02/2025 9:18 AM EST 11/02/2025 9:21 AM EST us Lucero Iverson PA-C LAB URINE ORDERA BLES Final Result [address] [address] * (ABNORMAL) URINE SEDIMENT (11/02/2025 9:18 AM EST) WBC 3-5 0 - 9 /hpf 11/02/2025 9:37 AM [facility] RBC >100(A) 0 - 2 /hpf 11/02/2025 9:37 AM EST [facility] Urine (Urine, Voided) Non-Blood Collection / Unknown 11/02/2025 9:18 AM EST 11/02/2025 9:21 AM EST us Lucero Iverson PA-C LAB URINE ORDERA BLES Final Result Performing Organization Address [facility] Co de Phone Number [address] [address] * (ABNORMAL) Lipid panel (08/22/2024 8:16 AM EDT) HDL 47 mg/dL [facility] Comment: Interpretation <40 mg/dL: Low HDL cholesterol (major risk factor for CHD) Greater than or equal to 60 mg/dL: High HDL cholesterol ( negative risk factor for CHD) HDL - cholesterol is affected by a number of factors, e.g. smoking, excerise, hormones, sex and age. CHOLESTEROL 150 0 - 240 mg/dL [facility] TRIGLYCERIDES 245(H) 30 - 160 mg/dL [facility] LDL 54 50 - 129 mg/dL [facility] Comment: LDL levels in terms of risk for coronary heart disease: <100 mg/dL: Optimal 100-129 mg/dL: Near or above optimal 130-159 mg/dL: Borderline high 160-189 mg/dL: High >190 mg/dL: Very High CARDIAC RISK RATIO 3.2(L) 3.4 - 5.0 [facility] Blood 08/22/2024 8:16 AM EDT 08/22/2024 8:19 AM EDT us Kojo Armenta DO LAB BLOOD BKR ORDERABLES Final R esult Performing Organization Address [facility]/ZIP Co de Phone Number [address] [address] from Last 3 Months or Most Recently Relevant to Health Maintenance [place] [address] Care Teams Workers' Compensation Hearings Officer Relationship Specialty Start Date End Date Kojo Armenta DO [address] [place] [address] [email or web address] PCP - General Internal Medicine 11/02/25 Kojo Armenta DO [address] [place] [address] Insurance Assigned Provider 02/27/24 Additional Source Comments The information contained in this document represents components of the legal health record. It is not the complete legal health record.[facility]
--- OUTSIDE RECORDS SUMMARY | 2025-11-07 18:03 | XMS_ITS | Encounter Summary ---
Author Organization [facility] Address [address] [place] [address] Phone Care Team Providers Care Vice Admiral Name Role Phone Kojo Armenta DO Primary Care Provider [phone] Kojo Armenta DO Unavailable Kojo Armenta DO Primary Care Provider [phone] Encounter Details Date Type Department Care Team (Late st Contact Info) Description 12/09/2023 Procedure Pass [facility] Endoscopy Admitting Dept Virtual Department [address] [place] [address] Social History Tobacco Use Types Packs/Day Years [...] on filedocumented in this encounter Care Teams Vice Admiral Relationship Specialty Start Date End Date Kojo Armenta DO [email or web address] PCP - General 09/07/17 11/01/25 Kojo Armenta DO [address] [place] [address] PCP - General Internal Medicine 11/02/25 Kojo Armenta DO [address] [place] [address] [email or web address] Insurance Assigned Provider 02/27/24 documented as of this encounter Additional Source Comments The information contained in this document represents components of the legal health record. It is not the complete legal health record.[facility]
--- OUTSIDE RECORDS SUMMARY | 2025-11-07 18:03 | XMS_ITS | Encounter Summary ---
Author Organization [facility] Address [address] [place] [address] Phone Care Team Providers Care Quality Control Tester Name Role Phone HeraclioKojo lowery Primary Care Provider [phone] Kojo Armenta DO Unavailable Kojo Armenta DO Primary Care Provider [phone] Encounter Details Date Type Department Care Team (Late st Contact Info) Description 12/29/2018 Ancillary Orders Virtual Department [address] [place] [address] Kojo Armenta DO [address] [facility] [place] [address] [place] [address] Screening for AAA (aortic abdominal aneurysm); Pain [...] No AAA nor overt atherosclerotic changes. POS [id number] Narrative 01/12/2019 10:40 AM EST Compare to [...] ultrasound. No AAA nor overt atheroscleroticchanges. POS [id number] us Kojo A Bigda DO IMG US [...] on left. POS - [id number] us Kojo A Bigda [...] conditions documented in this encounter Care Teams Quality Control Tester Relationship Specialty Start Date End Date Kojo Armenta DO PCP - General 09/07/17 11/01/25 Kojo Armenta DO [address] [place] [address] [email or web address] PCP - General Internal Medicine 11/02/25 Kojo Armenta DO [address] [place] [address] [email or web address] Insurance Assigned Provider 02/27/24 documented as of this encounter Additional Source Comments The information contained in this document represents components of the legal health record. It is not the complete legal health record.[facility]
--- OUTSIDE RECORDS SUMMARY | 2025-11-07 18:03 | XMS_ITS | Encounter Summary ---
Author Organization [facility] Address [address] [place] [address] Phone Care Team Providers Care Outsole Splicer Name Role Phone Kathi, oKjo A DO Primary Care Provider [phone] Bigda, Kojo A DO Unavailable Bigda, Kojo A DO Primary Care Provider [phone] Encounter Details Date Type Department Care Team (Latest Contact Info) Description 02/23/2023 Transcribe Orders Virtual Department [address] [place] [address] Zainab Vasquez PA [address] [place] [address] [place] [address] Pain in joint involving ankle and foot, [...] laterality documented in this encounter Care Teams Outsole Splicer Relationship Specialty Start Date End Date Kojo Armenta DO [email or web address] PCP - General 09/07/17 11/01/25 Kojo Armenta DO [address] [place] [address] [email or web address] PCP - General Internal Medicine 11/02/25 Kojo Armenta DO [address] [place] [address] Insurance Assigned Provider 02/27/24 documented as of this encounter Additional Source Comments The information contained in this document represents components of the legal health record. It is not the complete legal health record.[facility]
--- OUTSIDE RECORDS SUMMARY | 2025-11-07 18:04 | XMS_ITS | Encounter Summary ---
Author Organization [facility] Address [address] [place] [address] [address] [place] [address] Phone Care Team Providers Care Component Inspector Name Role Phone Kojo Armenta DO Unavailable HeraclioKojo lowery Primary Care Provider [phone] Encounter Details Date Type Department Care Team (Late st Contact Info) Description 11/02/2025 Procedure Pass [facility], Ct Scan - [facility] [place] [facility] [address] [place] [address] Social History Tobacco Use Types Packs/Day Years [...] on file documented as of this encounter Functional Status * Calculated C-SSRS Risk Score (Lifetime/Recent) Answer Date of Assessment Author No Risk Indicated 11/02/2025 8:31 AM Geraldo Olivares RN * Esmeralda Suicide Severity Rating Scale (Screener/Recent Self-Report) Question Answer Date of Assessment Author 1. Wish to be (Past 1 Month) No 025 8:31 AM Geraldo Olivares RN 2. Non-Specific Active Suici oly Thoughts (Past 1 Month) No 11/02/2025 8:31 AM Geraldo Olivares RN 6. Suicidal Behavior (Lifetime) No 8:31 AM Geraldo Olivares RN documented as of this encounter Plan of Treatment Not on file documented as of this encounter Visit Diagnoses Not on filedocumented in this encounter Care Teams Component Inspector Relationship Specialty Start Date End Date Kojo Armenta DO [address] [place] [address] [email or web address] PCP - General Internal Medicine 11/02/25 Kojo Armenta DO [address] [place] [address] Insurance Assigned Provider 02/27/24 documented as of this encounter Additional Source Comments The information contained in this document represents components of the legal health record. It is not the complete legal health record.[facility]
--- OUTSIDE RECORDS SUMMARY | 2025-11-07 18:04 | XMS_ITS | Data Portability ---
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 Lab cytology, urine 2024 025 [facility], [address] [place] [address], [address], 5 15:40:31 urinalysis complete, reflex culture 2024 025 [facility], [address] [place] [address], [address], 5 15:40:31 CMP, serum or plasma 2024 025 [facility] (Outpatient), [address] [place] [address], [address], 5 10:36:58 CBC 2024 025 [facility] (Outpatient), [address] [place] [address], [address], 5 10:36:58 PSA, serum or plasma 2024 025 [facility] (Outpatient), [address] [place] [address], [address], 5 10:36:58 lipid panel, blood 2024 025 [facility] (Outpatient), [address] [place] [address], [address], 5 10:36:58 CMP, serum or plasma 2023 024 [facility], [place], [address], 4 10:03:59 CBC w/ auto diff 2023 024 [facility], [place], [address], 4 12:55:21 PSA, serum or plasma 2023 024 [facility], [place], [address], 4 13:27:48 lipid panel, blood 2023 024 [facility], [place], [address], 4 13:18:16 vitamin D, 25-hydroxy , total, serum 2023 024 [facility], [place], [address], 4 10:01:46 vitamin B12, serum 2023 024 [facility], [place], [address], 4 13:34:05 Referral urologist referral - urine for cytology is pending 2024 025 [email or web address] Ortiz Robertson MD, [address] [place], [address], 5 15:54:44 vein specialist referral 2023 024 yara Zuniga MD, [address] [place] [address], [address], 4 08:44:20 Procedures None recorded. Surgeries None recorded. Imaging None recorded. Medication Orders doxycyclin e hyclate 100 mg capsule 2024 025 [facility], [address] [place], [address], 5 05:01:37 tamsulosin 0.4 mg capsule 2024 025 [facility], [address] [place], [address], 5 10:35:47 valacyclov ir 500 mg tablet 2023 024 [facility], [address] [place], [address], 4 09:39:52 Patient TargetsNo targets recorded. Patient Instructions Encounter Date Encounter Id Patient Instructions Last Modified By Organization Details Last Modified Time 08/09/2024 [id number] leg and ankle ed cindy: care instructions Not available 08/09/2024 09:57:50 gastroesophageal reflux disease (GERD): care instructions Not available 08/09/2024 09:39:46 endovenous ablat ion for varicose veins: before your procedure Not available 08/09/2024 09:57:50 learning about endovenous ablation for varicose veins Not available 08/09/2024 09:57:50 Reason for Referral Vein Specialist Referral for Varicose veins of lower extremity symptomatic varicose veins on Left side, swelling, heaviness Referring Physician: Zainab Vasquez, Internal Medicine, Encounter Date: 04/29/2024 Urologist Referral for Painl ess hematuria urine for cytology is pending Referring Physician: Kojo Armenta, Internal Medicine, Encounter Date: 11/06/2025 Results Created Date Observation Date Name Description Value Unit Range Abnormal Flag Note LastModifiedBy Organization Detail LastModifiedTime 11/02/2011/02/2025 CT, abdom en + pelvi s, w/o contr ast No observ ation record ed. [facility] (Emergency Room) [address] [place], [address], 11/03/2025 09:09:48 Result Notes None recorded. Problems Name Problem SNOMED Code Status Onset Date Resolution Date Notes Provider Name and Address Organization Details Recorded Time Coronary arterios clerosis 44501099 Active 2005 2 stents 2006 S[facility] 5 10:41:37 [facility] hyperten maurisio 59315830 Active 2017 [facility] 5 10:41:37 Gastroes ophageal reflux disease 444756027 Active 2017 [facility] 5 10:41:37 Venous varices 616638642 Active 2017 [facility] 5 10:41:37 Benign prostati c hyperpla abdias 256350781 Active 2017 [facility] 5 10:41:37 Polyp of colon 63748092 Active 2017 adenomato us [facility] 5 10:41:37 Divertic ulitis 220568681 Active 2017 sigmoid [facility] 5 10:41:37 Blood in urine 26517844 Active 2017 [facility] 5 10:41:24 Tendinit is 56453107 Active 2017 Left rotator [facility] 5 10:41:24 Edema of lower extremit y 130573538 Active 2018 Kojo Armenta, DO [address] [place] [address], [address], [facility] 9 10:00:40 Primary erectile dysfunct ion 987040570 Active 2018 Kojo Armenta, DO [address] [place] [address], [address], [place] [facility] 9 10:01:14 Acute tear of medial meniscus of right knee 42231933701 777113 Active 2021 [facility] 5 10:41:24 Tear of medial meniscus of knee 019035212 Active 2021 [facility] 5 10:41:24 Ankle pain 877995769 Active 2022 Michell Moise null, [facility] 5 10:41:24 Ankle pain 812124653 Active 2022 Michell Moise null, [facility] 5 10:41:24 Hyperlip idemia 61106253 Active 2022 Michell Moise null, [facility] 5 10:41:37 Uric acid level above referenc e range 31849741 Active 2022 Michell Moise null, [facility] 5 10:41:37 Gout 84592752 Active 2022 Michellpriscila Moise null, [facility] 5 10:41:37 Herpes zoster 0405757 Active 2022 Michellpriscila Moise null, [facility] 5 10:41:24 Varicose veins of lower extremit y 29478847 Active 2023 Michellpriscila Moise null, [facility] 5 10:41:37 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 43000327775 01 Active 2024 Kojo Armenta, [address] [place] [address], [address], [facility] 5 10:32:31 Cat scratch injury 621300755 Active 2024 PER HAMMOND [address] [place] [address], [address], [facility] 5 14:21:26 Neftaly hematuri a 738487923 Active 2024 Kojo Armenta DO [address] [place] [address], [address], [facility] 5 22:33:42 Painless hematuri a 190249828 Active 2024 Kojo Armenta DO [address] [place] [address], [address], [facility] 5 15:29:08 Notes:pseudomonas Problem Notes None recorded. Medical Equipment None Reported. Allergies Allergen ID Allergen Name Allergen Category Reaction Reaction Severity Criticality Documentation Date Start Date Code Code System Note Provider Name and Address Organization Details Recorded Time 81350 terazosin medicatio n Not available Not available unabletoasse 11/03/20252010 57320 RxNorm Not Available jf - External Data Service - prod 5 06:58:17 36842 Penicilli n Not available Not available Not available Not available 11/03/20252023 55240 RxNorm Not Available jf [employer] External Data Service - prod 5 06:58:28 1987 Substance with sulfonami de structure and antibacte rial mechanism of action (substanc e) medicatio n rash Not available Not available 06/16/2018 91302 8003 SNOMED [facility] 8 14:00:13 1988 Product containin g penicilli n (product) medicatio n rash Not available Not available 06/16/2018 76506 8001 SNOMED [facility] 8 14:00:31 1989 amlodipin e medicatio n edema Not available Not available 06/16/2018 97099 RxNorm [facility] 8 14:00:54 1990 lisinopri l medicatio n Not available Not available Not available 06/16/2018 31891 RxNorm raise d K+ [facility] 8 14:01:35 1991 Product containin g angiotens in-conver ting enzyme inhibitor (product) medicatio n Not available Not available Not available 06/16/2018 15342 009 [facility] 8 14:01:51 1992 Product containin g angiotens in II receptor antagonis t (product) medicatio n Not available Not available Not available 06/16/2018 57982 008 [facility] 8 14:02:08 Medications Name Sig Start [...] Details Last Updated DateTime 5 170.18 cm 28.9 kg/m2 40878.7 9 g 74 /min 96 % 124/82 mm[Hg] WALLY KAY [facility] 5 10:22:17 Date Recorded Body height Body mass index (BMI) Body weight Heart rate Oxygen saturation Systolic And Diastolic Provider Name and Address Organization Details Last Updated DateTime 4 170.18 cm 29.6 kg/m2 74187.9 6 g 68 /min 97 % 120/80 mm[Hg] Roslyn Chapin [facility] 4 11:10:59 Date Recorded Body height Body mass index (BMI) Body weight Oxygen saturation Heart rate Systolic And Diastolic Provider Name and Address Organization Details Last Updated DateTime 5 170.18 cm 28.4 kg/m2 91146.0 2 g 99 % 87 /min 116/78 mm[Hg] WALLY KAY [facility] 5 13:57:58 Date Recorded Body height Body mass index (BMI) Body weight Oxygen saturation Heart rate Systolic And Diastolic Provider Name and Address Organization Details Last Updated DateTime 4 170.18 cm 28 kg/m2 60576.0 3 g 94 % 77 /min 120/80 mm[Hg] Roslyn Chapin [facility] 4 09:27:00 Date Recorded Body height Body mass index (BMI) Body weight Heart rate Oxygen saturation Systolic And Diastolic Provider Name and Address Organization Details Last Updated DateTime 5 170.18 cm 29.7 kg/m2 48574.3 9 g 69 /min 94 % 130/70 mm[Hg] Giovanna Wonger [facility] 5 15:17:14 Social History Question Answer Notes [...] other forms of tobacco or nicotine? No [email or web address] Information not available 02/10/2024 Mental Status None recorded. Family History Nothing Reported. Medical History No medical history recorded. Immunizations Vaccine Type Date Status Note Provider Nam e and Address Organization Details Recorded Time COVID-19, mRNA, LNP-S, PF, 30 mcg/0.3 mL dose 12/25/19 completed Sybil bryant [facility] 05/29/2021 08:53:23 COVID-19, mRNA, LNP-S, PF, 30 mcg/0.3 mL dose 01/15/20 21 completed Sybil bryant [facility] 05/29/2021 08:53:29 Influenza, split virus, quadrivalent, preservative 09/24/20 21 completed Sylvia bryant [facility] 09/24/2021 10:31:46 Tdap 09/27/20 21 completed Kojo Armenta DO [address] [place] [address], [address], [facility] 09/28/2021 08:03:30 Pneumococcal conjugate PCV 13 09/27/20 21 completed Kojo Armenta DO [address] [place] [address], [address], [facility] 09/28/2021 08:03:57 zoster, unspecified formulation 11/23/19 21 completed Shannon Galvin [facility] 10/21/2021 16:31:05 zoster, unspecified formulation 09/24/20 21 completed Shannon Galvin [facility] 10/21/2021 16:31:14 COVID-19, mRNA, LNP-S, PF, 30 mcg/0.3 mL dose 08/20/20 21 [facility] 10/21/2021 16:32:18 COVID-19, mRNA, LNP-S, PF, 30 mcg/0.3 mL dose 10/06/20 22 completed Kojo Armenta, [address], [address], [facility] 10/06/2022 11:11:40 Influenza, split virus, quadrivalent, preservative 10/06/20 22 completed Kojo Armenta, DO [address] [place] [address], [address], [facility] 10/06/2022 11:12:38 Pneumococcal conjugate PCV20, polysaccharide [id number] conjugate, adjuvant, PF 06/22/20 23 completed Trevon Armenta [facility] 06/22/2023 16:24:52 RSV, recombinant, protein subunit RSVpreF, adjuvant reconstituted, 0.5 mL, PF 09/27/20 24 completed [facility] 09/28/2024 08:11:11 influenza, unspecified formulation 12/30/19 25 completed Trevon Armenta [facility] 12/30/2024 09:43:44 zoster, unspecified formulation 12/16/19 20 completed [facility] 12/16/2019 10:56:47 zoster, unspecified formulation 06/25/20 20 [facility] 06/25/2020 13:55:51 Past Encounters Encounter ID Performer Location Encounter Start Date Encounter Closed Date Diagnosis/Indication Diagnosis SNOMED-CT Code Diagnosis ICD10 Code Diagnosis IMO Codes Diagnosis Note [id number] Kojo Armenta [facility] [address] [facility],[place] [address] 06/28/2018 14:21:27 06/28/2018 15:34:32 Essential hypertension 64089845 I10 bp has been good and doing well evevn with the diclofenac Tendinitis 18406881 M77. 9 of shoulder and has healed nicely with the diclofenac hold on further meds Coronary arteriosclerosis 20997767 I25.810 will need to gert him a follw up appt with dr hodges Adult heal th examination 968301370 Z00.00 patient will refer himself for colonoscop y [id number] Kojo Armenta [facility] [address],[place] [address] 12/29/2018 09:22:16 12/29/2018 10:21:19 Essential hypertension 80548256 I10 bp has been good and doing well evevn with the diclofenac need to check K+ Abdominal aortic aneurysm screening 328829168 Z13.6 Hepatitis C screening 41 1080455 Z11.59 Edema of l ower extremity 267136512 R60.0 doing great with the chlorthali done will need to check K+ Primary er ectile dysfunction 222873672 N52.9 check testostero ne level Foot pain 77844037 M79.6 73 [id number] Kojo Armenta [address],[place] [address] 06/08/2019 09:03:56 06/08/2019 13:42:17 Essential hypertension 07247486 I10 -electroly maikel WNL -continue with chlorthali done -Blood pressures within goal range Coronary arteriosclerosis 73262373 I25.810 will need to gert him a follw up appt with dr hodges Primary er ectile dysfunction 532428265 N52.9 -testoster one level checked WNL -refer to urology Ankle pain 686462401 M25 .571 -degenerat misha changes of right ankle -return to clinic as needed for discomfort [id number] Kojo Armenta [facility] [address] [address],[place] [address] 12/07/2019 08:49:56 12/07/2019 10:36:34 Essential hypertension 77139037 I10 -electroly maikel WNL -continue with chlorthali done -Blood pressures within goal range Coronary arteriosclerosis 39312223 I25.810 will need to gert him a follow up appt with dr hodges as he didnot do this after last visit he has been having some vague exertional cp will need more lab Edema of l ower extremity 697827024 R60.0 doing great with the chlorthali done will need to check K+ [id number] Kojo Armenta [facility] [address],[place] [address] 05/22/2020 09:50:33 05/22/2020 11:03:53 Adult health examination 206588810 Z00.01 Doing well overall Active or passive immunization 277436555 Z23 Received shingles - needs second Benign pro static hyperplasia 886399055 N40.0 stable Edema of l ower extremity 200316044 R60.0 Stable Paresthesi a of lower extremity 147598880 R20.2 Has been getting worse over time Monofilame nt test positive Pain of le ft hip joint 1580957828 79289 M25.552 Old fracture of femur, now having some weakness Does not want to see ortho at this point Venous varices 730541967 I83.92 No pain, stable [id number] Kojo Armenta [facility] [address],[place] [address] 05/31/2021 15:37:17 05/31/2021 16:45:12 Essential hypertension 79257054 I10 -electroly maikel WNL -continue with chlorthali done -Blood pressures within goal range Edema of l ower extremity 413343902 R60.0 Stable with chlorthali done Coronary arteriosclerosis 44133919 I25.810 will need to get him a follow up appt with dr hodges as he did not do this after last visithas been asymptomat icwill need more lab Gastroesop hageal reflux disease 458564883 K21.9 stable unless he eats certain foods [id number] Kojo Armenta [facility] [address], [facility] [address] 10/11/2021 08:54:59 10/11/2021 09:23:08 Acute otitis media 9158256 H65.03 given abx to use, allergic to PCNS Anterior knee pain 06718 3006 M25.561 possible medial mensicus tear, improving Neuropathy 937794953 G62 .89 should have A1c recheckedw aiting to discuss with MB at next appt [id number] Kojo Armenta [facility] [address], [place] [place] [address] 03/21/2022 09:37:53 03/21/2022 11:07:11 Acute tear of medial meniscus of right knee 1248454086 2368641 S83.241D he will need to have this xray and then an MRI poss ortho ref or neisha after depending Coronary arteriosclerosis 61753773 I25.810 will need to get him a follow up appt with dr hodges as he did not do this after last visithas been asymptomat ic Essential hypertension 67708734 I10 -electroly maikel WNL -continue with chlorthali done -Blood pressures within goal range Gastroesop hageal reflux disease 923219891 K21.9 stable unless he eats certain foods [id number] Kojo Armenta [facility] [address] [facility], [place] [address] 02/23/2023 13:30:08 02/23/2023 16:21:53 Ankle pain 293380950 M25.579 agreed to bilateral ankle XRs Hyperlipidemia 41933912 E78.2 wanted by his cardio; will send results to him Edema of l ower extremity 013374065 R60.0 will set up with BNP and uric acidddx included gout and possible HF (less likely) [id number] Kojo Armenta [facility] [address],[place] [address] 05/05/2023 13:52:01 05/05/2023 14:32:46 Gout 51690276 M10.041 agreed to recheck his uric acid level [id number] Kojo Armenta [facility] [address],[place] [address] 08/04/2023 11:50:44 08/04/2023 13:20:34 Essential hypertension 11607172 I10 -electroly maikel WNL -continue with chlorthali done -Blood pressures within goal range Coronary arteriosclerosis 49065337 I25.810 no cp feeling well seeing dr cee been asymptomat icwill send lab to dr mann Adult heal th examination 137824069 Z00.01 Doing well overallsti ll having trouble with his knees etc but he is doing ok despitewe will get him a handicap placard Herpes zoster 2808235 B0 2.9 [id number] Kojo Armenta [facility] [address] [address],[place] [address] 02/10/2024 08:54:30 02/10/2024 10:59:44 Essential hypertension 60105292 I10 -electroly maikel WNL -continue with chlorthali done -Blood pressures within goal range Hyperlipidemia 33964619 E78.2 Uric acid level above reference range 91050068 E79.0 doing well with the allopurino l [id number] Kojo Armenta [facility] [address] [address],[place] [address] 04/29/2024 11:05:18 04/29/2024 13:29:57 Varicose veins of lower extremity 62824670 I83.892 will set up with vein specialist Edema of l ower extremity 513757883 R60.0 resolved discussed talking to his cardio about the amlodipine cont low salt dietwill also have him see vein specialist Depression screening 171 264720 Z13.31 negative [id number] Kojo Armenta [facility] [address],[place] [address] 08/09/2024 09:20:49 08/09/2024 10:02:46 Gastroesophageal reflux disease 516647875 K21.9 stable unless he eats certain foods Depression screening 171 Z13.31 neg Herpes zoster 0423663 B0 2.9 stable with med Adult heal th examination 107436795 Z00.01 Doing well overall Edema of l ower extremity 298218882 R60.0 Stable with chlorthali done Venous varices 329545836 I83.92 No pain, stable [id number] Kojo Armenta [facility] [address] [address],[place] [address] 04/25/2025 10:14:21 04/25/2025 12:01:14 Depression screening 044961228 Z13.31 neg Essential hypertension 33835663 I10 -electroly maikel WNL -continue with chlorthali done -Blood pressures within goal range Hyperlipidemia 07792027 E78.2 Nocturia d ue to benign prostatic hypertrophy 3507877141 101 N40.1 R35.1 4466866 stable [id number] [facility] [address],[place] [address] 07/25/2025 13:51:41 07/25/2025 14:36:34 Depression screening 762563751 Z13.31 negative Cat scratch injury 87692 5009 S60.511A W55.03XA 00090482 will set up with doxycyclin e [id number] [facility] [address], [place] [address] 11/06/2025 15:09:11 11/06/2025 15:54:44 Essential hypertension 33763214 I10 -electroly maikel WNL -continue with chlorthali done -Blood pressures within goal range Hyperlipidemia 19053764 E78.2 stable and will follow Depression screening 171 763730 Z13.31 neg Painless hematuria 12118 8001 R31.9 [id number] needs urology follow up Health Concerns Section Related Observation LastModified by Organization Detai ls LastModified Time None Recorded Concern Status LastModified by Organization Details LastModified Time None Recorded Advance Directives Directive None Recorded Payers Insurance Date Sequence Insurance Name Policy Number Policy Garzon Covered Member ID Garzon Member ID Guarantor Name 11/04/2025 1 [place] [facility] ([facility] [id number] Sagrario Andrade [id number] Osmany Andrade Notes Date Note Type Note Provider Name and Address Organization Details Recorded Time 04/29/20 24 text/htm l ROS as noted in the HPI c/o LE swelling the patient reports starting April 15 he developed bilateral swelling in the LEsthe patient reports that he looked up reasons for it and decided to decrease his salt intake and he hasn't had issues in daysdid discuss probability of relation to salt and the varicose veins he has on the Left legdiscussed seeing a vein specialist the pt will also call cardio about the amlodipinecont low salt diet will see vein specialist PER HAMMOND [address] [place], [address], [facility] 04/29/2024 11:28:10 08/09/20 24 text/htm l ROS as noted in the HPI HERE FOR A CPE dong well overallrelates having multiple ablations to his leg veins over next few weeksusing the valacyclovir to prevent herpetic outbreaks Kojo Armenta DO [address] [facility], [place], [address], [facility] 08/09/2024 10:01:25 04/25/20 25 text/htm l Care Management - HypertensionReported by PatientHPIFor self care, patient reportsnot under emotional stress. For severity, patient reportssymptoms are improvinganddoes not interfere with daily activities. For associated symptoms, patient reportsno dizziness,no lightheadedness,no chest pain,no shortness of breath,no palpitations,no edema,no calf muscle cramps,no blurred vision,no confusion,no headaches, andno fatigue. General Rash/Skin LesionReported by PatientHPIFor quality, patient reportsno itchyandnot painful. For context, patient reportsno new detergents or skin productsandno one else with similar rash. For aggravating factors, patient reportsnothing makes it worse. For associated symptoms, patient reportsno fever,no cold symptoms,no nausea,no vomiting,no diarrhea, andno urinary symptoms. Care Management - HyperlipidemiaReported by PatientHPIFor control, patient reportsusually well controlled,improving, andat goal. For complications, patient reportsno coronary artery disease,no heart attack,no cardiovascular disease,no pancreatitis, andno stroke.ROS as noted in the HPI review of his skin for atypical Kojo Armenta, DO [address] [place], [address], [facility] Internal [facility] 04/25/2025 10:36:59 07/25/20 25 text/htm l ROS as noted in the HPI c/o cat scratch the patient reports that he was petting his cat and it clawed at his right thumbthe patient reports that he then developed swelling and purulent drainage from his thumb the patient reports that he has been trying to soak itit is red, warm and tender to the touch will keep area clean and dry otherwise no severe infection PER HAMMOND [address] [place], [address], [facility] 07/25/2025 14:26:48 11/06/20 25 text/htm l Care Management - [...] in ER for hematuria Kojo Armenta, [address] [place], [address], [facility] Internal Medicine 11/06/2025 15:39:06
--- OUTSIDE RECORDS SUMMARY | 2025-11-07 18:04 | XMS_ITS | Encounter Summary ---
Author Organization [facility] Address [address] [place] [id number] Phone Care Team Providers Care Coloring Room Worker Name Role Phone HeraclioKojo lowery Primary Care Provider [phone] Kojo Armenta DO Unavailable Kojo Armenta DO Primary Care Provider [phone] Encounter Details Date Type Department Care Team (Late st Contact Info) Description 03/21/2022 Transcribe Orders Virtual Department [address] [place] [address] Kojo Armenta DO [address] [place] [address] [email or web address] Acute medial meniscus tear of right knee, [...] calcifications. IMPRESSION: Moderate medial compartment degenerative changes. us Kojo Armenta DO IMG XR LOWER EXTREMITY Final Res ult documented in this encounter Visit Diagnoses Diagnosis Acute medial meniscus tear of right knee, initial encounter- Primary Acute medial meniscus tear of right knee, initial encounter documented in this encounter Care Teams Coloring Room Worker Relationship Specialty Start Date End Date Kojo Armenta DO PCP - General 09/07/17 11/01/25 Kojo Armenta DO [address] [place] [address] PCP - General Internal Medicine 11/02/25 Kojo Armenta DO [address] [place] [address] Insurance Assigned Provider 02/27/24 documented as of this encounter Additional Source Comments The information contained in this document represents components of the legal health record. It is not the complete legal health record.[facility]
--- OUTSIDE RECORDS SUMMARY | 2025-11-07 18:04 | XMS_ITS | Encounter Summary ---
Author Organization [facility] Address [address] [place] [phone] Phone Care Team Providers Care Experimental Display Builder Name Role Phone Heracliosebastián Kojo Marcellus Primary Care Provider [phone] Kojo Armenta DO Unavailable Kojo Armenta Marcellus Primary Care Provider [phone] Encounter Details Date Type Department Care Team (Late st Contact Info) Description 09/28/2018 Procedure Pass [facility] Endoscopy Admitting Dept Virtual Department [address] [place] [address] Social History Tobacco Use Types Packs/Day Years [...] on filedocumented in this encounter Care Teams Experimental Display Builder Relationship Specialty Start Date End Date Kojo Armenta DO [email or web address] PCP - General 09/07/17 11/01/25 Kojo Armenta DO [address] [place] [address] [email or web address] PCP - General Internal Medicine 11/02/25 Kojo Armenta DO [address] [place] [address] [email or web address] Insurance Assigned Provider 02/27/24 documented as of this encounter Additional Source Comments The information contained in this document represents components of the legal health record. It is not the complete legal health record.[facility]
== END 2025-11-07 08:31 | disposition home or self-care (01) ==
LOC: HO.MANLNP 08:30
PROVIDERS: Visit Provider Internal Medicine
DX: R31.9 Hematuria, unspecified (principal)
CPT/HCPCS: 88112